=== PATIENT | female | born 1955 | race Caucasian/White ===

== ENCOUNTER → 2018-07-17 10:35 | Outpatient (CLI) | payer OTHER, SELFPAY ==
--- NOTE | 2018-07-17 | DI.MG.S_ITS ---
BILATERAL DIGITAL SCREENING MAMMOGRAM 3D/2D WITH CAD: 07/17/2018 CLINICAL: Routine screening. Personal history of breast cancer. Family history of breast cancer. Comparison is made to exams dated: 12/29/2016 mammogram, 06/29/2016 mammogram, and 06/20/2016 mammogram - [facility]. The tissue of both breasts is heterogeneously dense. This may lower the sensitivity of mammography. Current study was also evaluated with a Computer Aided Detection (CAD) system. There are benign post operative findings in the right breast. There also are benign calcifications in both breasts. No significant masses, calcifications, or other findings are seen in either breast. There has been no significant interval change. IMPRESSION: There is no mammographic evidence of malignancy. A 1 year screening mammogram is recommended. NOTE: For mammograms, a report in lay terms will be sent to the patient. Approximately 15% of breast malignancies will not be visualized mammographically. In the management of a palpable breast mass, a negative mammogram must not discourage biopsy of a clinically suspicious lesion. Electronically Signed By: Jenny fernandez/yojana:07/18/2018 16:01:57 copy to: Shashi Cervantes letter sent: Normal Exam ACR BI-RADS Category 2: Benign Finding(s) 3342F
== END ==
PROVIDERS: PCP Internal Medicine; Visit Provider Internal Medicine
DX: Z12.31 Encounter for screening mammogram for malignant neoplasm of breast (principal); Z85.3 Personal history of malignant neoplasm of breast; Z80.3 Family history of malignant neoplasm of breast
CPT/HCPCS: 77063; 77067

== ENCOUNTER → 2018-08-09 11:57 | Outpatient (CLI) | payer OTHER, SELFPAY ==
--- NOTE | 2018-08-09 | DI.RAD.S_ITS ---
PROCEDURE: XR ANKLE LT MIN 3V INDICATIONS: PAIN IN LEFT ANKLE TECHNIQUE: 3 views of the ankle were acquired. COMPARISON: [facility], , XR FOOT 3V LEFT, 11/22/2004, 9:23. FINDINGS: Bones: No fractures or dislocations. Ankle mortise is normally aligned. No suspicious bony lesions. Moderate degenerative joint disease at the tarsal metatarsal joints on the lateral projection. There is calcaneal spurring. Soft tissues: Trace tibiotalar joint effusion. Achilles tendon appears normal. Soft tissue swelling over the lateral malleolus. IMPRESSION: 1. No fracture or dislocation. 2. Degenerative disease. 3. Calcaneal spurring. Dictated by: Shikha Joy M.D. on 08/09/2018 at 16:12 Approved by: Shikha Joy M.D. on 08/09/2018 at 16:14
== END ==
PROVIDERS: PCP Internal Medicine; Visit Provider Internal Medicine
DX: M25.572 Pain in left ankle and joints of left foot (principal); M19.072 Primary osteoarthritis, left ankle and foot; M77.32 Calcaneal spur, left foot
CPT/HCPCS: 73610

== ENCOUNTER → 2018-08-17 09:43 | Outpatient (CLI) | payer OTHER, SELFPAY ==
[2018-08-17 10:18] LABS: Alanine Aminotransferase 29 IU/L (9-52); Aspartate Aminotransferase 21 IU/L (14-36); BUN Creatinine Ratio 26.7 (6-22); Blood Urea Nitrogen 16 mg/dL (7-17); Calcium 9.8 mg/dL (8.4-10.2); Carbon Dioxide 30 mmol/L (22-32); Chloride 100 mmol/L (98-107); Estimated Glomerular Filt Rate > 60.0 mL/min (>60); Glucose 102 mg/dL (80-110); HEMOLYSIS < 15 (0-50); Potassium 4.3 mmol/L (3.4-5.1); Sodium 140 mmol/L (137-145)
[2018-08-17 10:55] LABS: Cholesterol 189 mg/dL (140-199); HDL Cholesterol 122 mg/dL (40-60); LDL Cholesterol Calculated 51 mg/dL (<100); Triglycerides 81 mg/dL (35-150)
== END ==
PROVIDERS: PCP Internal Medicine; Visit Provider Internal Medicine
DX: I10 Essential (primary) hypertension (principal); E78.5 Hyperlipidemia, unspecified
CPT/HCPCS: 36415; 80048; 80061; 84450; 84460

== ENCOUNTER 2018-10-02 08:59 | Day surgery (SDC) | payer OTHER, SELFPAY ==
--- NOTE | 2018-10-02 | PATH_ITS ---
[facility] Accession Number: [id number] . 01 Material submitted: . PART A: ASCENDING COLON POLYP X3 PART B: POLYP AT 50CM X2 PART C: POLYP AT 15CM X2 . 02 Diagnosis: A. Ascending Colon, Polyps: Fragments of tubular adenoma (three polyps removed). . B. Colon at 50 cm, Polyps: Colonic mucosa with no diagnostic abnormality, consistent with polypoid redundancies (two polyps removed). Negative for serrated lesion, dysplasia or malignancy. . C. Colon at 15 cm, Polyps: Hyperplastic polyp x2. MR/10/03/2018 . 02 Electronically signed: . Tristen Powell MD, PhD, Pathologist NPI- [id number] . 01 Gross description: . Received three formalin-filled containers, each labeled with the patient's name: . A. In a container labeled ascending colon, are multiple 0.1-0.4 cm portions of tissue, entirely submitted in cassette A. B. In a container labeled polyp at 50 cm, are three 0.1-0.3 cm portions of tissue, entirely submitted in cassette B. C. In a container labeled polyp at 15 cm, are two 0.2-0.4 cm portions of tissue, entirely submitted in cassette C. ([id number]) /FRR . 02 Pathologist provided ICD-10: D12.2 . 02 CPT . 147056, 117970, 337160 Performed at: 01 [facility] [address] [id number] MD Sherif Gillis MD Phone: [phone] Performed at: 02 [facility] [address] [place] [id number] MD Tressa Purvis MD Phone: [phone]
[2018-10-02 09:25] VITALS: BP 146/96; PULSE 88; RESP 16; TEMP 36.3; O2SAT 99; BMI 23.9
[2018-10-02] MEDS: SODIUM CHLORIDE 0.9% 1,000 ML 200 ML IV ×2 (09:29→11:00)
--- NOTE | 2018-10-02 10:26 | PM.HP.1 ---
History of Present Illness Date Patient Seen: 10/02/18 Time Patient Seen: 10:19 Chief complaint: colonoscopy 10389 Narrative: Patient is a woman here for a colonoscopy. She had 14 polyps removed year ago and recommended she come back to re-examine her colon this year. Grandmother had colon cancer Patient History household members: family Status post right breast lumpectomy (Chronic) Surgical History Status post right breast lumpectomy (Chronic) Family & Social History Social History: household members family Meds Home Medications Medication Instructions Recorded Confirmed Type CA PANTOTHENATE/FOLIC ACID/VIT 1 tab PO QDAY #0 04/01/13 History (MULTIVITAMIN) CALCIUM CARBONATE (#CALCIUM) 500 mg PO Q DAY #0 04/01/13 History CHOLECALCIFEROL (VITAMIN D3) Q DAY #0 04/01/13 History (VITAMIN D) [Vitamin B12 ] QMONTH #0 04/01/13 History atenolol 25 mg PO BID #0 04/01/13 History Allergies Allergy/AdvReac Type Severity Reaction Status Date / Time No Known Drug Allergies Allergy Verified 10/02/18 08:31 Review of Systems Review of Systems All systems reviewed & are unremarkable except as noted in HPI and below Exam Vital Signs (past 8 hours): - 10/02/18 09:25 Temperature 97.3 F L Pulse Rate 88 Respiratory Rate 16 Blood Pressure 146/96 H Pulse Oximetry 99 Oxygen Delivery Method Room Air Narrative Exam Narrative: Thin cooperative woman in no apparent distress. Lungs are clear. Heart regular rate and rhythm without murmur gallop. Abdomen is scaphoid soft nontender without mass or hernia. Patient is alert and oriented. Assessment & Plan Plan: Assessment/Plan Narrative: Will proceed to colonoscopy. I have discussed the procedure and the rationale with the patient including risks of bleeding, perforation which would necessitate a major operation, failure to find remove all lesions and the potential to tattoo. They appeared to understand and wished to proceed.
--- NOTE | 2018-10-02 10:29 | PM.PREOP ---
Pre-operative Note Interval Note History & Physical reviewed/Exam performed by Physician: Yes Changes to H&P: No ASA Class (for procedural sedation): II
[2018-10-02] MEDS: MIDAZOLAM 5 MG/5 ML VIAL IV (10:32)
[2018-10-02] MEDS: fentaNYL 250 MCG/5 ML INJ IV (10:33)
[2018-10-02] MEDS: ONDANSETRON 4 MG/2 ML INJ IV (10:33)
[2018-10-02] MEDS: SCOPOLAMINE 1 PATCH TOP (10:37)
[2018-10-02 11:03] VITALS: BP 129/84; PULSE 63; RESP 12; TEMP 36.7; O2SAT 96
--- NOTE | 2018-10-02 11:05 | P.OP.ENDO_ITS ---
Operative Date/Time/Diagnoses Date of procedure: 10/02/18 Time of procedure: 11:01 Pre-op diagnosis: History of numerous polyps. Last exam was 1 year ago. Post-op diagnosis: same (Seven polyps all diminutive 4 removed. Sigmoid diverticulosis. Internal hemorrhoids.) Procedure & Clinicians Study performed: EGD with cold biopsy Same procedure as scheduled: Yes Indications: History of 14 polyps removed a year ago. Due to the numerous nature and size of the polyp she is brought back for re-evaluation. Surgeon: Adonis Mcdaniel Procedure Notes SCOAP/Timeout: Performed Procedure in detail: The patient was placed in the left lateral decubitus position and underwent IV sedation directed by the surgeon consisting of fentanyl and Versed. Digital exam was unremarkable. The scope was inserted and advanced through the rectum into the sigmoid, descending, transverse, and ascending colon. The patient was noted to have sigmoid diverticulosis.. The cecum was reached identified by the ileocecal valve and the appendiceal opening. The scope was gradually brought out. Polyps were found at the ascending colon(3), 50 cm from the anal verge(2) and 15 cm from the anal verge(2 ). All were quite small. All were removed with cold biopsy forceps. The scope ultimately was attempted to be retroflexed in the rectum. I was unable to do so. The scope was slowly brought out through the anal verge. The patient was noted to have internal hemorrhoids without ulceration. The scope was removed and the patient tolerated the procedure well. The prep was very good. Scope withdrawal time: 16 min Findings: diverticulosis (Sigmoid), internal hemorrhoids and polyp (Seven small polyps) Specimen(s): other (Polyps) Complications: none Recommendations: Colonscopy in 3 years Follow up: as needed Disposition: PACU
[2018-10-02 11:09] VITALS: BP 117/77; PULSE 60; RESP 10; O2SAT 96
[2018-10-02 11:14] VITALS: BP 112/77; PULSE 64; RESP 13; O2SAT 97
[2018-10-02 11:19] VITALS: BP 118/81; PULSE 82; RESP 15; TEMP 36.5; O2SAT 99
[2018-10-02 11:29] VITALS: BP 124/79; PULSE 69; RESP 15; TEMP 36.3; O2SAT 98
== END 2018-10-02 11:55 | disposition home or self-care (01) ==
LOC: ENDO 09:01
PROVIDERS: PCP Internal Medicine; Visit Provider Specialist
PROC: 0DJD8ZZ Inspection of Lower Intestinal Tract, Via Natural or Artificial Opening Endoscopic (ICD-10-PCS; CPT 45378; principal; 2018-10-02 09:45)
DX: Z86.010 Personal history of colon polyps (principal); K57.30 Diverticulosis of large intestine without perforation or abscess without bleeding; K64.8 Other hemorrhoids; D12.2 Benign neoplasm of ascending colon
CPT/HCPCS: 45380; J2250; J2405; J3010

== ENCOUNTER → 2019-07-19 11:34 | Outpatient (CLI) | payer OTHER, SELFPAY ==
--- NOTE | 2019-07-19 | DI.MG.S_ITS ---
BILATERAL DIGITAL SCREENING MAMMOGRAM 3D/2D WITH CAD POST LUMPECTOMY: 07/19/2019 CLINICAL: Routine screening. Personal history of right breast cancer. Family history of breast cancer. Comparison is made to exams dated: 07/17/2018 mammogram, 12/29/2016 mammogram, 06/20/2016 mammogram, and 04/01/2015 mammogram - [facility]. The tissue of both breasts is heterogeneously dense. This may lower the sensitivity of mammography. Current study was also evaluated with a Computer Aided Detection (CAD) system. There are benign calcifications in both breasts. There also are benign post operative findings in the right breast. No significant masses, calcifications, or other findings are seen in either breast. There has been no significant interval change. IMPRESSION: There is no mammographic evidence of malignancy. A 1 year screening mammogram is recommended. This exam was interpreted at Station ID: [id number]. NOTE: For mammograms, a report in lay terms will be sent to the patient. Approximately 15% of breast malignancies will not be visualized mammographically. In the management of a palpable breast mass, a negative mammogram must not discourage biopsy of a clinically suspicious lesion. Electronically Signed By: Lloyd cheatham/yojana:07/19/2019 13:03:27 letter sent: Normal Exam ACR BI-RADS Category 2: Benign Finding(s) 3342F
== END ==
PROVIDERS: PCP Internal Medicine; Visit Provider Internal Medicine
DX: Z12.31 Encounter for screening mammogram for malignant neoplasm of breast (principal); Z85.3 Personal history of malignant neoplasm of breast; Z80.3 Family history of malignant neoplasm of breast
CPT/HCPCS: 77063; 77067

== ENCOUNTER → 2019-11-29 09:34 | Outpatient (CLI) | payer MEDICARE, SELFPAY ==
[2019-11-29 10:18] LABS: Cholesterol 158 mg/dL (140-199); HDL Cholesterol 40 mg/dL (40-60); LDL Cholesterol Calculated 99 mg/dL (<100); Triglycerides 95 mg/dL (35-150)
[2019-12-03 10:50] LABS: Alanine Aminotransferase 17 IU/L (<35); Aspartate Aminotransferase 26 IU/L (14-36)
== END ==
PROVIDERS: PCP Internal Medicine; Referring Provider Internal Medicine; Visit Provider Internal Medicine
DX: E78.5 Hyperlipidemia, unspecified (principal)
CPT/HCPCS: 36415; 80061; 84450; 84460

== ENCOUNTER → 2020-02-26 10:13 | Outpatient (CLI) | payer MEDICARE, SELFPAY ==
[2020-02-26 10:55] LABS: Bacteria Urine None Seen; RBC Urine None Seen (0-5/HPF); WBC Urine None Seen (0-5/HPF)
[2020-02-26 11:39] LABS: Appearance Urine UA CLEAR; Bilirubin Urine UA NEGATIVE (NEGATIVE); Color Urine UA YELLOW; Glucose Urine UA NEGATIVE (Negative); Ketones Urine UA NEGATIVE (NEGATIVE); Leukocyte Esterase Urine UA NEGATIVE (NEGATIVE); Nitrite Urine UA NEGATIVE (Negative); Occult Blood Urine UA NEGATIVE (Negative); Protein Urine UA NEGATIVE (Negative); Urobilinogen Urine UA 0.2 E.U./dL (0.2)
[2020-02-26 11:39] LABS: Add Manual Diff / Slide Review NO; Basophils Absolute Auto 100 /uL (0-100); Eosinophils Absolute Auto 300 /uL (0-450); Eosinophils Percent Auto 3.9 % (2-4); Hematocrit 37.8 % (36-46); Hemoglobin 12.9 g/dL (12.0-16.0); Lymphocytes Absolute Auto 2200 /uL (1100-4500); Lymphocytes Percent Auto 28.7 % (25-40); Mean Corpuscular HGB Conc 34.1 % (30-36); Mean Corpuscular Hemoglobin 29.7 PG (26-34); Mean Corpuscular Volume 87.2 fL (80-100); Monocytes Absolute Auto 500 /uL (0-900); Monocytes Percent Auto 6.6 % (3-14); Neutrophils Absolute Auto 4500 /uL (1500-7000); Neutrophils Percent Auto 59.8 % (50-75); Platelet Count 203 X10^3/uL (150-400); Red Blood Cell Count 4.33 X10^6/uL (4.0-5.2); Red Cell Distribution Width 12.6 % (11.6-14.8); White Blood Cell Count 7.5 X10^3/uL (4.5-11.0)
[2020-02-26 12:08] LABS: pH Urine UA 6.5 (4.5-8.0)
[2020-02-26 12:14] LABS: Blood Urea Nitrogen 15 mg/dL (7-17); Calcium 9.4 mg/dL (8.4-10.2); Carbon Dioxide 33 mmol/L (22-32); Chloride 103 mmol/L (98-107); Estimated Glomerular Filt Rate > 60.0 mL/min (>60); Glucose 90 mg/dL (80-110); HEMOLYSIS < 15 (0-50); Sodium 138 mmol/L (137-145)
[2020-02-26 12:26] LABS: Culture Indicated Urine Cult Not Indicated
[2020-02-26 12:41] LABS: TSH w/ Reflex to FT4 2.62 uIU/mL (0.47-4.68)
[2020-02-26 13:00] LABS: Vitamin B12 514 pg/mL (239-931)
== END ==
PROVIDERS: PCP Internal Medicine; Referring Provider Internal Medicine; Visit Provider Internal Medicine
DX: R53.82 Chronic fatigue, unspecified (principal); R10.9 Unspecified abdominal pain; E53.8 Deficiency of other specified B group vitamins; I10 Essential (primary) hypertension
CPT/HCPCS: 36415; 80048; 81001; 82607; 84443; 85025

== ENCOUNTER → 2020-03-05 11:53 | Outpatient (CLI) | payer MEDICARE, SELFPAY ==
--- NOTE | 2020-03-05 12:53 | DI.CT.S_ITS ---
PROCEDURE: CT ABDOMEN PELVIS W CON INDICATIONS: Unspecified abdominal pain TECHNIQUE: After the administration of oral and intravenous contrast, 5 mm thick sections acquired from the diaphragms to the symphysis. 5 mm thick coronal and sagittal reformats were performed. For radiation dose reduction, the following was used: automated exposure control, adjustment of mA and/or kV according to patient size. COMPARISON: [facility], , CT ABDOMEN/PELVIS W/WO CONTRAST, 07/07/2003, 12:12. FINDINGS: Image quality: Excellent. ABDOMEN: Lung bases: There are right middle lobe and lingular scars. Heart size is normal. Solid organs: Liver is normal in size and enhancement. Tiny indeterminate hypodensities in the left hepatic lobe are most likely hepatic cysts. Gallbladder may contain gallstones. Biliary system is non-dilated. Pancreas enhances normally. Spleen is normal in size and enhancement. No adrenal nodules. Kidneys are normal in size and enhancement, without hydronephrosis. There is a 6 mm nonobstructing stone in right kidney. Peritoneum and bowel: Stomach, small bowel, and colon loops are normal in caliber and wall thickness. There are numerous colonic diverticula. No free fluid or air. Nodes and vessels: No retroperitoneal or mesenteric adenopathy. Aorta and inferior vena cava are normal in caliber. Miscellaneous: There is a small fat containing umbilical hernia. PELVIS: Genitourinary: Bladder wall thickness is normal. Myomatous uterus with multiple uterine fibroids. No adnexal mass. No free fluid in the cul-de-sac. Miscellaneous: No inguinal hernias or adenopathy. Bones: No suspicious bony lesions. No vertebral body compression fractures. IMPRESSION: 1. No acute abnormalities in abdomen or pelvis. The cause for abdominal pain is not identified. 2. A 6 mm nonobstructive right renal stone. 3. Suspect cholelithiasis. Recommend ultrasound for further evaluation. 4. Myomatous uterus. 5. Small fat containing umbilical hernia. Dictated by: Shikha Joy M.D. on 03/05/2020 at 14:43 Approved by: Shikha Joy M.D. on 03/05/2020 at 18:01
== END ==
PROVIDERS: PCP Internal Medicine; Referring Provider Internal Medicine; Visit Provider Internal Medicine
DX: R10.9 Unspecified abdominal pain (principal); K57.90 Diverticulosis of intestine, part unspecified, without perforation or abscess without bleeding; K42.9 Umbilical hernia without obstruction or gangrene; N20.0 Calculus of kidney; D25.9 Leiomyoma of uterus, unspecified
CPT/HCPCS: 74177; Q9967

== ENCOUNTER → 2020-03-27 12:43 | Outpatient (CLI) | payer MEDICARE, SELFPAY ==
--- NOTE | 2020-03-27 | DI.US.S_ITS ---
PROCEDURE: US ABDOMEN LIMITED INDICATIONS: GALLSTONES TECHNIQUE: Real-time focused scanning was performed of the abdomen, with image documentation. COMPARISON: [facility], CT, CT ABDOMEN PELVIS W CON, 03/05/2020, 12:41. FINDINGS: Normal appearance of the liver 13 mm right hepatic lobe cyst.. Adenomyomatosis of the anterior gallbladder wall. No definitive mobile stones visualized. No gallbladder wall thickening. Extrahepatic bile duct is upper limits of normal in size measuring 7.5 mm. Normal pancreas. IMPRESSION: Gallbladder wall adenomyomatosis and hepatic cyst. Dictated by: Deonte Armstrong [facility] Interpreted: Cayden Hackett MD on 03/30/2020 at 13:00 Approved by: Cayden Hackett M.D. on 03/30/2020 at 13:51
== END ==
PROVIDERS: PCP Internal Medicine; Referring Provider Internal Medicine; Visit Provider Internal Medicine
DX: K80.20 Calculus of gallbladder without cholecystitis without obstruction (principal); K82.8 Other specified diseases of gallbladder; K76.89 Other specified diseases of liver
CPT/HCPCS: 76705

== ENCOUNTER → 2020-07-21 11:14 | Outpatient (CLI) | payer MEDICARE, SELFPAY ==
--- NOTE | 2020-07-21 | DI.MG.S_ITS ---
BILATERAL DIGITAL SCREENING MAMMOGRAM 3D/2D WITH CAD: 07/21/2020 CLINICAL: Routine screening. Breast cancer. Family history of breast cancer. Comparison is made to exams dated: 07/19/2019 mammogram, 07/17/2018 mammogram, and 12/29/2016 mammogram - [facility]. The tissue of both breasts is heterogeneously dense. This may lower the sensitivity of mammography. Current study was also evaluated with a Computer Aided Detection (CAD) system. There are benign calcifications in both breasts. There also are benign post operative findings in the right breast. No significant masses, calcifications, or other findings are seen in either breast. There has been no significant interval change. IMPRESSION: BENIGN There is no mammographic evidence of malignancy. A 1 year screening mammogram is recommended. This exam was interpreted at Station ID: [id number]. NOTE: For mammograms, a report in lay terms will be sent to the patient. Approximately 15% of breast malignancies will not be visualized mammographically. In the management of a palpable breast mass, a negative mammogram must not discourage biopsy of a clinically suspicious lesion. Electronically Signed By: Tricia green/yojana:07/21/2020 13:27:24 letter sent: Normal Exam ACR BI-RADS Category 2: Benign Finding(s) 3342F
== END ==
PROVIDERS: PCP Internal Medicine; Referring Provider Internal Medicine; Visit Provider Internal Medicine
DX: Z12.31 Encounter for screening mammogram for malignant neoplasm of breast (principal)
CPT/HCPCS: 77063; 77067

== ENCOUNTER → 2020-08-25 11:56 | Outpatient (CLI) | payer MEDICARE, SELFPAY ==
--- NOTE | 2020-08-25 | DI.US.S_ITS ---
PROCEDURE: US RENAL COMPLETE INDICATIONS: UNSPECIFIED ABD. PAIN TECHNIQUE: Real-time scanning was performed of the kidneys and bladder, with image documentation. COMPARISON: [facility], CT, CT ABDOMEN PELVIS W CON, 03/05/2020, 12:41. FINDINGS: Kidneys: Kidneys are normal in size. Right kidney measures 11.4 cm long; left kidney measures 11.9 cm long. Right renal cortical thickness is 1.6 cm; left renal cortical thickness is 1.8 cm. Renal cortical echotexture is normal. No hydronephrosis or nephrolithiasis. No suspicious solid mass lesions. Note is made of a 5 mm calculus at the right kidney also seen by prior CT scanning at the mid kidney level, nonobstructive Bladder: Pre-void bladder volume is 320 mL. Post-void residual is 9 mL. Pre-void images demonstrate no intraluminal masses or stones. On pre-void images, bilat ureteral jets are noted with color Doppler interrogation. (Of note, ureteral jets may not be detectable in up to 25% of cases due to insufficient differences in specific gravity between ureteral and bladder urine). Miscellaneous: No free pelvic fluid. IMPRESSION: Small nonobstructive calculus at the right kidney likely is the same calculus seen by CT scanning 03/05/20. It has not enlarged. Normal bladder function. Dictated by: Wai Dominique M.D. on 08/25/2020 at 14:26 Approved by: Wai Dominique M.D. on 08/25/2020 at 14:37
== END ==
PROVIDERS: PCP Internal Medicine; Referring Provider Physician Assistant; Visit Provider Physician Assistant
DX: N20.0 Calculus of kidney (principal)
CPT/HCPCS: 76770

== ENCOUNTER → 2020-11-04 14:59 | Outpatient (ROUT) | payer OTHER, SELFPAY ==
[2020-11-04 15:10] LABS: Add Manual Diff / Slide Review NO; Basophils Absolute Auto 100 /uL (0-100); Basophils Percent Auto 0.8 % (0-2); Eosinophils Absolute Auto 300 /uL (0-450); Lymphocytes Absolute Auto 2100 /uL (1100-4500); Lymphocytes Percent Auto 29.1 % (25-40); Mean Corpuscular HGB Conc 33.4 % (30-36); Mean Corpuscular Hemoglobin 30.4 PG (26-34); Mean Corpuscular Volume 90.9 fL (80-100); Monocytes Absolute Auto 500 /uL (0-900); Monocytes Percent Auto 7.3 % (3-14); Neutrophils Absolute Auto 4200 /uL (1500-7000); Neutrophils Percent Auto 58.8 % (50-75); Platelet Count 202 X10^3/uL (150-400); Red Blood Cell Count 4.62 X10^6/uL (4.0-5.2); Red Cell Distribution Width 13.1 % (11.6-14.8); White Blood Cell Count 7.1 X10^3/uL (4.5-11.0)
[2020-11-04 15:28] LABS: Alanine Aminotransferase 18 IU/L (<35); Albumin 4.5 g/dL (3.5-5.0); Albumin Globulin Ratio 1.7 (1.0-2.8); Alkaline Phosphatase 74 U/L (38-126); Aspartate Aminotransferase 26 IU/L (14-36); BUN Creatinine Ratio 27.3 (6-22); Bilirubin Total 0.6 mg/dL (0.2-1.3); Blood Urea Nitrogen 18 mg/dL (7-17); Calcium 9.9 mg/dL (8.4-10.2); Carbon Dioxide 29 mmol/L (22-32); Chloride 100 mmol/L (98-107); Estimated Glomerular Filt Rate > 60.0 mL/min (>60); Globulin 2.6 g/dL (1.7-4.1); Glucose 91 mg/dL (80-110); HEMOLYSIS < 15 (0-50); Potassium 4.3 mmol/L (3.4-5.1); Sodium 136 mmol/L (137-145); Total Protein 7.1 g/dL (6.3-8.2)
== END ==
PROVIDERS: PCP Internal Medicine; Visit Provider Internal Medicine
DX: R07.9 Chest pain, unspecified (principal)
CPT/HCPCS: 80053; 85025

== ENCOUNTER → 2020-11-11 10:28 | Outpatient (CLI) | payer OTHER, SELFPAY ==
--- NOTE | 2020-11-11 10:40 | DI.CT.S_ITS ---
PROCEDURE: CT CHEST W CON INDICATIONS: Chest pain, unspecified TECHNIQUE: After the administration of intravenous contrast, 5 mm thick sections acquired from the pulmonary apices to the posterior costophrenic angles. 1 mm axial lung, 5 mm thick coronal and sagittal reformats and 7 mm axial MIP were acquired. For radiation dose reduction, the following was used: automated exposure control, adjustment of mA and/or kV according to patient size. COMPARISON: None. FINDINGS: Image quality: Excellent. Lungs and pleura: There is a 1.1 cm round solid nodule in the subpleural posterior medial right lower lobe (2/177). A pleural-based 6 mm nodule is present in the posterior left lower lobe superior segment (2/126). There is a ground-glass irregular nodule in the lateral right lower lobe measuring about 9 mm (2/152). Atelectatic changes are seen in the lingula and right middle lobe. No pleural effusions or pneumothorax. Central and peripheral airways are patent and normal in caliber. Mediastinum: Heart size is normal. No pericardial effusion. No mediastinal or hilar adenopathy by size criteria. There is narrowing or stenosis of the brachiocephalic vein at the SVC junction with preferential opacification of the SVC through the azygos vein. Thoracic aorta and central pulmonary arteries are normal in size. Esophagus is normal in caliber. No hiatal hernia. Bones and chest wall: Surgical clips in the right breast and right axilla. No suspicious bony lesions. No vertebral body compression fractures. No axillary or supraclavicular adenopathy by size criteria. Thyroid gland is normal . Abdomen: Visualized upper abdominal solid organs appear normal. Upper abdominal bowel loops are normal in caliber. IMPRESSION: 1. 11 mm round solid nodule in the posteromedial right lower lobe. Given patient history of primary neoplasm, this nodule is mildly suspicious. PET-CT is recommended. 2. 2 other nodules, one ground-glass and one pleural-based. Continued follow-up of these nodules CT in six months is recommended. 3. 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 4. No osseous abnormalities. Dictated by: Tricia Park M.D. on 11/11/2020 at 14:46 Approved by: Tricia Park M.D. on 11/11/2020 at 15:26
== END ==
PROVIDERS: PCP Internal Medicine; Referring Provider Internal Medicine; Visit Provider Internal Medicine
DX: R07.9 Chest pain, unspecified (principal); R91.8 Other nonspecific abnormal finding of lung field
CPT/HCPCS: 71260; Q9967

== ENCOUNTER → 2021-01-21 09:11 | Outpatient (CLI) | payer OTHER, SELFPAY ==
[2021-01-21 10:50] LABS: Cholesterol 277 mg/dL (140-199); HDL Cholesterol 100 mg/dL (40-60); LDL Cholesterol Calculated 146 mg/dL (<100); Triglycerides 156 mg/dL (35-150)
== END ==
PROVIDERS: PCP Internal Medicine; Referring Provider Internal Medicine; Visit Provider Internal Medicine
DX: E78.5 Hyperlipidemia, unspecified (principal)
CPT/HCPCS: 36415; 80061

== ENCOUNTER → 2021-06-28 09:31 | Outpatient (CLI) | payer OTHER, SELFPAY | PROVIDERS: PCP Internal Medicine; Referring Provider Internal Medicine; Visit Provider Internal Medicine | DX: Z78.0 Asymptomatic menopausal state (principal); M85.851 Other specified disorders of bone density and structure, right thigh; Z85.3 Personal history of malignant neoplasm of breast; Z72.0 Tobacco use | CPT/HCPCS: 77080 ==

== ENCOUNTER → 2021-07-22 11:54 | Outpatient (CLI) | payer OTHER, SELFPAY ==
--- NOTE | 2021-07-22 | DI.MG.S_ITS ---
BILATERAL DIGITAL SCREENING MAMMOGRAM 3D/2D WITH CAD POST LUMPECTOMY: 07/22/2021 CLINICAL: Routine screening. Personal history of right breast cancer. Comparison is made to exams dated: 07/21/2020 mammogram, 07/19/2019 mammogram, 07/17/2018 mammogram, and 06/20/2016 mammogram - [facility]. The tissue of both breasts is heterogeneously dense. This may lower the sensitivity of mammography. Current study was also evaluated with a Computer Aided Detection (CAD) system. There are benign calcifications in both breasts. There also are benign post operative findings in the right breast. No significant masses, calcifications, or other findings are seen in either breast. There has been no significant interval change. IMPRESSION: BENIGN There is no mammographic evidence of malignancy. A 1 year screening mammogram is recommended. This exam was interpreted at Station ID: [id number]. NOTE: For mammograms, a report in lay terms will be sent to the patient. Approximately 15% of breast malignancies will not be visualized mammographically. In the management of a palpable breast mass, a negative mammogram must not discourage biopsy of a clinically suspicious lesion. Electronically Signed By: Lloyd cheatham/yojana:07/22/2021 12:55:49 letter sent: Normal Exam ACR BI-RADS Category 2: Benign Finding(s) 3342F
== END ==
PROVIDERS: PCP Internal Medicine; Referring Provider Internal Medicine; Visit Provider Internal Medicine
DX: Z12.31 Encounter for screening mammogram for malignant neoplasm of breast (principal); Z85.3 Personal history of malignant neoplasm of breast
CPT/HCPCS: 77063; 77067

== ENCOUNTER → 2022-04-18 13:49 | Outpatient (CLI) | payer OTHER, SELFPAY ==
[2022-04-18 14:36] LABS: COVID19 -Nasal RAPID Negative (Negative)
== END ==
PROVIDERS: Visit Provider Student in an Organized Health Care Education/Training Program
DX: Z20.822 Contact with and (suspected) exposure to COVID-19 (principal)
CPT/HCPCS: 87635

== ENCOUNTER → 2022-08-18 10:40 | Outpatient (CLI) | payer OTHER, SELFPAY ==
--- NOTE | 2022-08-18 | DI.MG.S_ITS ---
BILATERAL DIGITAL SCREENING MAMMOGRAM 3D/2D WITH CAD: 08/18/2022 CLINICAL: Routine screening. Personal history of right breast cancer. Family history of breast cancer. Comparison is made to exams dated: 07/22/2021 mammogram, 07/21/2020 mammogram, and 07/19/2019 mammogram - [facility]. Both breasts are heterogeneously dense, which may obscure small masses (category c / 51-75% glandular tissue). Current study was also evaluated with a Computer Aided Detection (CAD) system. There are benign calcifications in both breasts. There also are benign post operative findings in the right breast. No significant masses, calcifications, or other findings are seen in either breast. There has been no significant interval change. IMPRESSION: BENIGN There is no mammographic evidence of malignancy. A 1 year screening mammogram is recommended. This exam was interpreted at Station ID: [id number]. NOTE: For mammograms, a report in lay terms will be sent to the patient. Approximately 15% of breast malignancies will not be visualized mammographically. In the management of a palpable breast mass, a negative mammogram must not discourage biopsy of a clinically suspicious lesion. Electronically Signed By: Sravan oliva/yojana:08/18/2022 12:02:05 letter sent: Normal Exam ACR BI-RADS Category 2: Benign Finding(s) 3342F
== END ==
PROVIDERS: PCP Internal Medicine; Referring Provider Internal Medicine; Visit Provider Internal Medicine
DX: Z12.31 Encounter for screening mammogram for malignant neoplasm of breast (principal); Z85.3 Personal history of malignant neoplasm of breast; Z80.3 Family history of malignant neoplasm of breast
CPT/HCPCS: 77063; 77067

== ENCOUNTER → 2023-01-03 10:50 | Outpatient (CLI) | payer OTHER, SELFPAY ==
--- NOTE | 2023-01-03 10:52 | DI.RAD.S_ITS ---
PROCEDURE: XR KNEE RT 3V INDICATIONS: bilateral knee pain, primary osteoarthritis TECHNIQUE: 3 views of the knee were acquired. COMPARISON: [facility], , KNEE 3V LEFT, 11/01/2015, 12:02. FINDINGS: Bones: No fractures or dislocations. [id number] tricompartmental osteoarthritis is seen in right knee most notably in medial femoral tibial compartment with significant joint space narrowing, subchondral sclerosis and marginal osteophyte formation. No patellar subluxation. No suspicious bony lesions. Soft tissues: No joint effusion. No suspicious soft tissue calcifications. IMPRESSION: [id number] tricompartmental osteoarthritis most notably in medial femoral tibial compartment. No fracture or dislocation. No significant joint effusion. Dictated by: Cayden Hackett M.D. on 01/03/2023 at 12:09 Approved by: Cayden Hackett M.D. on 01/03/2023 at 12:10
--- NOTE | 2023-01-03 10:52 | DI.RAD.S_ITS ---
PROCEDURE: XR KNEE LT 3V INDICATIONS: bilateral knee pain, primary osteoarthritis TECHNIQUE: 3 views of the knee were acquired. COMPARISON: [facility], , KNEE 3V LEFT, 11/01/2015, 12:02. FINDINGS: Bones: No fractures or dislocations. Yplq-qw-sxjcfqqt tricompartmental osteoarthritis is seen with joint space narrowing, subchondral sclerosis and marginal osteophyte formation most notably in medial femoral tibial compartment. No patellar subluxation. No suspicious bony lesions. Soft tissues: No joint effusion. No suspicious soft tissue calcifications. IMPRESSION: Rkph-[id number] tricompartmental osteoarthritis in left knee most notably in medial femoral tibial compartment. No fracture or dislocation. No significant joint effusion. Dictated by: Cayden Hackett M.D. on 01/03/2023 at 12:04 Approved by: Cayden Hackett M.D. on 01/03/2023 at 12:09
== END ==
PROVIDERS: PCP Internal Medicine; Referring Provider Internal Medicine; Visit Provider Internal Medicine
DX: M17.0 Bilateral primary osteoarthritis of knee (principal)
CPT/HCPCS: 73562

== ENCOUNTER → 2023-01-12 09:50 | Outpatient (CLI) | payer OTHER, SELFPAY ==
--- NOTE | 2023-01-12 09:54 | DI.CT.S_ITS ---
PROCEDURE: CT IVP A/P W/WO INDICATIONS: RIGHT FLANK PAIN TECHNIQUE: Optional 5 mm thick noncontrast images acquired from the diaphragm to the symphysis pubis. After the administration of intravenous contrast, 5 mm thick images acquired from the diaphragm to the symphysis pubis after a 10-minute delay. 2 mm thick coronal and sagittal reformats were then performed of the kidneys and ureters. For radiation dose reduction, the following was used: automated exposure control, adjustment of mA and/or kV according to patient size. COMPARISON: [facility], CT, CT ABDOMEN PELVIS W CON, 03/05/2020, 12:41. FINDINGS: Image quality: Excellent. Lung bases: Lung bases are clear. Heart size is normal. Urinary system: Both kidneys are normal in size without hydronephrosis. Symmetric enhancement. There is a nonobstructing 6 mm right renal stone measuring approximately 1300 Hounsfield units. Right ureter is normal in course and caliber. No left-sided renal stones. No left perinephric stranding. Left ureter is normal in course and caliber. Renal calyces appear normal in morphology when filled with contrast. Opacified portions of both ureters demonstrate normal caliber. Bladder wall thickness is normal. No calcified bladder stones. No perivesicular stranding. Other solid organs: Liver is normal in size and enhancement. Redemonstration of 1.3 cm oval hypodensity in the inferior tip of the right hepatic lobe. This likely represents a cyst or hemangioma. Gallbladder is unremarkable.. Biliary system is non dilated. Pancreas enhances normally. Spleen is normal in size and enhancement. No adrenal nodules. Peritoneum and bowel: Multiple scattered colonic diverticula without evidence for acute inflammatory changes. However, there is nonspecific peritoneal fat stranding involving the proximal to mid ascending colon without definite wall thickening. Inflammatory changes does not appear to center around a diverticula. Normal appendix. No free fluid or air. Nodes and vessels: No retroperitoneal or mesenteric adenopathy by size criteria. Scattered atherosclerotic calcifications of the abdominal aorta and iliac vessels without aneurysmal dilatation. The inferior vena cava appears patent. Abdominal wall: There is a fat-containing umbilical hernia without acute inflammation. Pelvis: No pathologic free pelvic fluid. No inguinal hernias. No pelvic adenopathy. Redemonstration of numerous calcified uterine fibroids. Bones: No suspicious bony lesions. No acute vertebral body compression fractures. No acute vertebral body compression fractures. Multilevel spondylitic changes throughout the imaged spine. No suspicious osseous lesions. IMPRESSION: 1. Nonobstructing 6 mm right renal stone as before. No hydronephrosis or perinephric stranding. No evidence for obstructive uropathy. 2. Nonspecific peritoneal fat stranding of the right mid and lower abdomen along the proximal to mid ascending colon. No definite wall thickening or inflammatory changes surrounding scattered diverticula. Findings may represent colitis either infectious or inflammatory in etiology. Mild diverticulitis may have a similar appearance. The appendix appears normal. 3. Scattered colonic diverticulosis. No definite acute diverticulitis although there are some inflammatory changes adjacent to the proximal/mid ascending colon. 4. Stable appearance of 1.3 cm oval hypodensity over the inferior tip of the right hepatic lobe. 5. Other chronic findings as above. Dictated by: Lloyd Haney M.D. on 01/12/2023 at 15:08 Approved by: Lloyd Haney M.D. on 01/12/2023 at 15:23
[2023-01-12 10:18] LABS: Estimated Glomerular Filt Rate > 60 mL/min (>60)
== END ==
PROVIDERS: Specialist; PCP Internal Medicine; Referring Provider Internal Medicine; Visit Provider Internal Medicine
DX: N20.0 Calculus of kidney (principal); K57.90 Diverticulosis of intestine, part unspecified, without perforation or abscess without bleeding; R10.9 Unspecified abdominal pain; Z98.890 Other specified postprocedural states
CPT/HCPCS: 36415; 74178; 82565; Q9967

== ENCOUNTER → 2023-08-02 09:21 | Outpatient (CLI) | payer MEDICARE, SELFPAY ==
--- NOTE | 2023-08-02 | DI.MG.S_ITS ---
BILATERAL DIGITAL DIAGNOSTIC MAMMOGRAM 3D/2D: 08/02/2023 CLINICAL: Palpable right breast lump. personal hx of right breast cancer. Comparison is made to exams dated: 08/18/2022 mammogram, 07/22/2021 mammogram, and 07/21/2020 mammogram - [facility]. Both breasts are heterogeneously dense, which may obscure small masses (category c / 51-75% glandular tissue). No significant masses, calcifications, or other findings are seen in either breast. Benign calcifications in both breasts. Benign postoperative changes are stable in the right breast, with skin scar at site of palpable marker. IMPRESSION: INCOMPLETE: NEEDS ADDITIONAL IMAGING EVALUATION Benign postoperative changes are stable in the right breast, with skin scar at site of palpable marker. Ultrasound recommended for palpable abnormality. This exam was interpreted at Station ID: [id number]. NOTE: For mammograms, a report in lay terms will be sent to the patient. Approximately 15% of breast malignancies will not be visualized mammographically. In the management of a palpable breast mass, a negative mammogram must not discourage biopsy of a clinically suspicious lesion. Electronically Signed By: Fawad Wan M.D. lc/:08/02/2023 11:54:47 ACR BI-RADS Category 0: Incomplete 3340F
--- NOTE | 2023-08-02 | DI.US.S_ITS ---
LIMITED ULTRASOUND OF RIGHT BREAST: 08/02/2023 CLINICAL: Palpable right breast lump. Comparison is made to exams dated: 08/02/2023 mammogram, 08/18/2022 mammogram, 07/22/2021 mammogram, 07/21/2020 mammogram, 07/19/2019 mammogram, and 07/17/2018 mammogram - [facility]. Color flow, real-time, and continuous wave Doppler ultrasound of the right breast were performed. Multiple shadowing regions are seen, likely corresponding to clips and calcifications on mammogram, in which all findings were stable. IMPRESSION: BENIGN There is no sonographic evidence of malignancy. Suspected clips and calcifications are seen, corresponding to mammogram, in which all findings were stable at site of palpable marker and postoperative changes. Patient reports tender palpable abnormality today. - Close clinical followup is recommended to evaluate if this area is actually new or changing. If so, reimaging with mammogram/ultrasound, possible MRI, and possible dermatologic evaluation are recommended. On imaging, no suspicious mass or calcifications that is different from priors. Return to annual mammogram screening schedule is also recommended. This exam was interpreted at Station ID: [id number]. Electronically Signed By: Fawad Wan M.D. lc/:08/02/2023 12:02:00 letter sent: Clinical Evaluation Ultrasound BI-RADS: 2 Benign
== END ==
PROVIDERS: PCP Internal Medicine; Referring Provider Internal Medicine; Visit Provider Internal Medicine
DX: N63.14 Unspecified lump in the right breast, lower inner quadrant (principal); N64.4 Mastodynia
CPT/HCPCS: 76642; 77066; G0279

== ENCOUNTER → 2023-08-22 13:19 | Outpatient (CLI) | payer MEDICARE, SELFPAY ==
--- NOTE | 2023-08-22 | DI.MRI.S_ITS ---
BREAST MRI OF BOTH BREASTS- POST LUMPECTOMY: 08/22/2023 CLINICAL: Personal History of malignant neoplasm of breast. TECHNIQUE: The patient was placed prone in a dedicated breast imaging coil. Precontrast axial STIR and 3D FLASH without fat saturation sequences were obtained. Both before and after bolus injection of contrast, sequential 1-minute axial 3D FLASH with fat saturation sequences for 3 time points, with subtraction images and maximum intensity projections (MIP's) generated. Delayed sagittal FLASH images with fat saturation were also obtained. 20 cc ProHance gadolinium based IV contrast. Computer-aided detection, including computer algorithm analysis of MRI image data for lesion detection and characterization, pharmacokinetic analysis, with further physician review for interpretation, was performed. COMPARISON: [facility], CT, CT CHEST W CON, 11/11/2020, 10:33. [facility], MG, MM SCREENING MAMMO BI, 07/22/2021, 12:12. [facility], , MM DIAGNOSTIC MAMMO BI, 08/02/2023, 10:02. [facility], US, US BREAST RT LIMITED, 08/02/2023, 11:10. FINDINGS: Image quality: Excellent. There is minimal background parenchymal enhancement. Right breast: The right breast is smaller than the left due to prior lumpectomy. There is inward retraction of inferior medial skin and nipple. There is nonenhancing inferomedial skin thickening. Blooming artifact and hypointensity of several surgical clips and dystrophic calcifications of fat necrosis are seen centrally in the right breast. There is minor benign linear enhancement extending from the lumpectomy bed posteriorly to the chest wall. There is enhancement the nipple and linear enhancement extending to the lumpectomy bed. This enhancement demonstrates benign kinetics and is presumably related to radiation treatment. No focal mass or malignant non masslike enhancement. Left breast: There is a probable oval lymph node measuring 0.7 x 0.7 x 0.8 cm in the 2 o'clock position 10 cm from the nipple at a posterior depth. See series 14, image 90. This correlates with microlobulated solid nodule seen on mammogram. It demonstrates mixed kinetics with some rapid enhancement and very small percentage of washout. There are no other suspicious masses or non masslike enhancement in the left breast. Incidental note is made of several mildly prominent subareolar ducts filled with proteinaceous material in the lateral left breast. Miscellaneous: No right axillary adenopathy. There is a borderline low level 1 LEFT axillary lymph node measuring 6 mm in short axis in which a fatty hilum cannot be seen, see series 14, image 109. No other bulky left axillary nodes. Centrally within the right lung at the level of the main pulmonary artery, there is a 1.6 cm enhancing centrally cavitary lung lesion not previously present. See series 11 image 100. In this location on a chest CT dated 11/11/20, there is small amount of amorphous ground-glass opacity. The previously noted smooth subpleural medial right lower lobe pulmonary nodule is redemonstrated, fairly stable size with minimal enhancement. See series 11, image 75. No visible hilar or mediastinal adenopathy. No internal mammary chain adenopathy. The visible portions of the chest wall and upper abdominal organs are normal. IMPRESSION: INCOMPLETE: NEEDS ADDITIONAL IMAGING EVALUATION 1. Postsurgical changes of lumpectomy, and expected post radiation enhancement anterior and posterior to the lumpectomy bed. No MR findings to suspect recurrence in the right breast. 2. There is a borderline probably microlobulated 0.8 cm nodule in the axillary tail of the left breast as well as of borderline low left axillary lymph node. While these are probably reactive, further characterization with ultrasound is recommended. 3. Findings suspicious for cavitary neoplasm or infection in the central right lung. Contrast-enhanced chest CT recommended. BIRADS 0-needs additional imaging. Left breast ultrasound is recommended. COMMENT: The imaging literature indicates that a negative contrast breast MRI examination has a high sensitivity and a moderate specificity for detecting and excluding invasive carcinomas to a detection threshold of 3-5 mm; nonetheless, appropriate clinical and mammographic follow-up are recommended. MRI is not sensitive for detecting DCIS (ductal carcinoma in situ) and may not detect large invasive neoplasms that show only minimal enhancement such as mucinous carcinoma. If there are suspicious calcifications or clinically worrisome palpable masses, then biopsy should still be considered. Invasive neoplasms can be hidden by co-existent and benign enhancement caused by mastitis, hormone therapy effects, radiation therapy, , and recent biopsy or surgery. False positive examinations can occur in a number of circumstances, including breasts that have recently been subject to invasive procedures and those that contain atypical ductal hyperplasia, hormonally stimulated glandular tissue, fat necrosis, or radial scars. This exam was interpreted at Station ID: [id number]. Electronically Signed By: Tricia green/:08/22/2023 17:44:35 Entry: aa - 08/23/2023 11:35:58 ACR BI-RADS Category 0: Incomplete 3340F
== END ==
PROVIDERS: PCP Internal Medicine; Referring Provider Internal Medicine; Visit Provider Internal Medicine
DX: N63.14 Unspecified lump in the right breast, lower inner quadrant (principal); Z85.3 Personal history of malignant neoplasm of breast; R91.8 Other nonspecific abnormal finding of lung field
CPT/HCPCS: 77049; A9579

== ENCOUNTER → 2023-08-25 11:46 | Outpatient (CLI) | payer MEDICARE, SELFPAY ==
[2023-08-25 12:17] LABS: Estimated Glomerular Filt Rate > 60 mL/min (>60)
== END ==
PROVIDERS: PCP Internal Medicine; Referring Provider Specialist; Visit Provider Specialist
DX: R91.1 Solitary pulmonary nodule (principal)
CPT/HCPCS: 36415; 82565

== ENCOUNTER → 2023-08-29 08:13 | Outpatient (CLI) | payer MEDICARE, SELFPAY ==
--- NOTE | 2023-08-29 | DI.US.S_ITS ---
LIMITED ULTRASOUND OF LEFT BREAST AND AXILLA: 08/29/2023 CLINICAL: Patient returns today to evaluate a focal asymmetry in the left breast. Comparison is made to exams dated: 08/22/2023 breast MRI, 08/02/2023 ultrasound, 08/02/2023 mammogram, 08/18/2022 mammogram, 07/22/2021 mammogram, and 07/21/2020 mammogram - [facility]. Color flow ultrasound of the left breast 2 o'clock, and axilla regions was performed. Clark scale images of the real-time examination were reviewed. There is a 0.7 cm x 0.7 cm x 0.5 cm normal lymph node in the left breast at 2 o'clock posterior depth 10 cm from the nipple. This normal lymph node displays fatty hilum. This correlates with breast MRI findings. Color flow imaging demonstrates that there is appropriate vascularity present. There also are two other normal lymph nodes in the left axillary tail. These lymph nodes display fatty kari. These correlate with breast MRI findings. No suspicious lymph nodes are present in the left axilla and no suspicious findings in the upper outer left breast. IMPRESSION: BENIGN There is no sonographic evidence of malignancy. The 0.7 cm x 0.7 cm x 0.5 cm normal lymph node in the left breast at 2 o'clock posterior depth corresponds to the MRI finding and is benign. The other lymph nodes in the left axillary tail are benign. Findings were conveyed to the patient at time of exam. This exam was interpreted at Station ID: [id number]. Electronically Signed By: Tricia green/:08/29/2023 09:32:44 Entry: aa - 08/29/2023 11:39:53 letter sent: Normal Exam Ultrasound BI-RADS: 2 Benign
--- NOTE | 2023-08-29 | DI.CT.S_ITS ---
PROCEDURE: CT CHEST W CON INDICATIONS: PULMONARY NODULE TECHNIQUE: After the administration of intravenous contrast, 5 mm thick sections acquired from the pulmonary apices to the posterior costophrenic angles. 1 mm axial lung, 5 mm thick coronal and sagittal reformats and 7 mm axial MIP were acquired. For radiation dose reduction, the following was used: automated exposure control, adjustment of mA and/or kV according to patient size. COMPARISON: [facility], CT, CT CHEST W CON, 11/11/2020, 10:33. FINDINGS: Image quality: Diagnostic. Lower Neck: No enlarged lymph nodes. Thyroid: No thyroid nodules which require sonographic follow up, per consensus guidelines. Axillae: No enlarged lymph nodes. Chest Wall: Surgical clips in the right axilla and right breast. Bones: No acute fracture. No aggressive appearing lytic or blastic osseous lesions. Lungs and Pleura: Compared to CT chest dated November 11, 2020, increased size of pulmonary nodule with central cavitation in the apical segment of the right lower lobe measuring 1.2 x 1.1 cm (4/161), previously 0.9 cm (2/152). Stable size of right lower lobe medial solid pulmonary nodule measuring 1.1 x 1.1 cm (4/185), previously 1.1 x 1 cm (2/177). Stable left lower lobe subpleural solid pulmonary nodule measuring 0.6 cm (4/132). No pneumothorax or pleural effusions. Heart: Heart size is normal. No pericardial effusion. Thoracic Vessels: The aorta and pulmonary arteries demonstrate normal size. Similar appearance of narrowing of the left brachiocephalic vein with collaterals. Mediastinum and Emely: No enlarged lymph nodes. Esophagus: No wall thickening. No hiatal hernia. Upper Abdomen: Visualized upper abdomen solid organs and bowel loops appear normal. IMPRESSION: 1. Compared to CT chest dated November 11, 2020, increased size of pulmonary nodule with central cavitation in the apical segment of the right lower lobe. Findings are suspicious for metastatic disease and/or infection. 2. Stable right lower lobe posteromedial solid pulmonary nodule and stable left lower lobe subpleural nodule. 3. No suspicious adenopathy. Dictated by: Destin Gambino M.D. on 08/29/2023 at 11:49 Approved by: Destin Gambino M.D. on 08/29/2023 at 12:41
== END ==
PROVIDERS: PCP Internal Medicine; Referring Provider Internal Medicine; Visit Provider Internal Medicine
DX: N63.21 Unspecified lump in the left breast, upper outer quadrant (principal); R91.8 Other nonspecific abnormal finding of lung field
CPT/HCPCS: 71260; 76642; Q9967

== ENCOUNTER → 2023-09-13 12:16 | Outpatient (CLI) | payer MEDICARE, SELFPAY ==
--- NOTE | 2023-09-13 | DI.CT.S_ITS ---
PROCEDURE: CT CHEST WO CON INDICATIONS: PULMONARY NODULE TECHNIQUE: Noncontrast 5 mm thick sections acquired from the pulmonary apices to the posterior costophrenic angles. 1 mm lung window, 5 mm thick coronal and sagittal and 7 mm axial MIP reformats were then acquired. For radiation dose reduction, the following was used: automated exposure control, adjustment of mA and/or kV according to patient size. COMPARISON: [facility], CT, CT CHEST W CON, 11/11/2020, 10:33. [facility], CT, CT CHEST W CON, 08/29/2023, 9:33. FINDINGS: Image quality: Diagnostic. Lower Neck: No enlarged lymph nodes. Thyroid: Normal CT appearance. Axillae: Surgical clips in the right axilla. No adenopathy in either axilla. Chest Wall: Surgical changes of right breast lumpectomy. No visible chest wall masses. Bones: No suspicious lesions. Lungs and Pleura: There is a thick-walled spiculated cavitary nodule laterally in the superior segment right lower lobe, 3/147, which is stable size measuring 1.4 x 0.9 cm compared to the prior exam. There is trace surrounding ground-glass opacity and adjacent cystic changes. A smoothly marginated round solid nodule in the subpleural medial right lower lobe, 3/175, measures 1.0 cm and has Hounsfield units near 0 suggesting the presence of fat. A triangular pleural-based left lower lobe nodule posteriorly measures 0.5 cm, 3/119. There are no new nodules. Trace subpleural fibrosis in the anterolateral right middle lobe. No pleural effusions. Heart: The heart is mildly enlarged and there is moderate coronary artery calcification. No pericardial effusion. Thoracic Vessels: The aorta and pulmonary arteries demonstrate normal size. Mediastinum and Emeyl: There are borderline precarinal lymph nodes. The previous enlarged right hilar node is not seen without contrast on this exam. No significant change. Esophagus: No wall thickening. No hiatal hernia. Upper Abdomen: Visualized upper abdomen solid organs and bowel loops appear normal. IMPRESSION: 1. There has been no improvement in the suspicious lateral right lower lobe pulmonary nodule compared to prior exam following antibiotic treatment. Given the change in morphology and enlargement since 11/11/20, this is suspicious for an indolent neoplasm and PET-CT, and/or tissue acquisition is recommended. 2. Stable smoothly marginated medial right lower lobe lung nodule is benign. 3. Hilar adenopathy is not detected on this exam due to lack of contrast administration. Dictated by: Tricia Park M.D. on 09/13/2023 at 17:10 Approved by: Tricia Park M.D. on 09/13/2023 at 17:23
== END ==
LOC: CT 12:17
PROVIDERS: PCP Internal Medicine; Referring Provider Internal Medicine; Visit Provider Internal Medicine
DX: R91.8 Other nonspecific abnormal finding of lung field (principal)
CPT/HCPCS: 71250

== ENCOUNTER 2023-11-20 21:36 | Emergency (ER) | payer MEDICARE, SELFPAY ==
[2023-11-20] VITALS (12 sets, daily range): BP systolic 162–216; BP diastolic 82–105; PULSE 48–107; RESP 18–25; TEMP 37.1; O2SAT 97–99; BMI 20.5
--- NOTE | 2023-11-20 21:41 | DI.CT.S_ITS ---
PROCEDURE: CT HEAD/BRAIN WO CON INDICATIONS: Slurred speech and facial droop TECHNIQUE: Noncontrast 4.5 mm thick angled axial sections acquired from the foramen magnum to the vertex, with coronal and sagittal reformats. For radiation dose reduction, the following was used: automated exposure control, adjustment of mA and/or kV according to patient size. COMPARISON: None. FINDINGS: Image quality: Diagnostic. CSF spaces: Basal cisterns are patent. No extra-axial fluid collections. Ventricles are normal in size and shape. Brain: 2.8 cm round left frontal lobe high-density mass with adjacent vasogenic edema. At the same axial level, there is a vague heterogeneous cortical mass in the right frontal lobe measuring about 1.3 cm also with adjacent vasogenic edema, more posteriorly. There is no midline shift or mahesh herniation. There is no acute intraparenchymal or intraventricular hemorrhage. Skull and face: Calvarium and visualized facial bones are intact, without suspicious lesions. Sinuses: Visualized sinuses and mastoids are clear. IMPRESSION: Probable bilateral brain masses with adjacent vasogenic edema most suggestive of metastatic disease. Discussed with Dr. Stiles in the emergency room at 22 46 hours. Dictated by: Tricia Park M.D. on 11/20/2023 at 22:45 Approved by: Tricia Park M.D. on 11/20/2023 at 22:51
--- NOTE | 2023-11-20 21:42 | DI.CT.S_ITS ---
PROCEDURE: CT ANGIO HEAD AND NECK INDICATIONS: Slurred speech and facial droop TECHNIQUE: After the administration of intravenous contrast, 1 mm thick sections acquired from the aortic arch through the [place]. 3-dimensional ivjcqbg-rbicffibn-blkxddhjox (MIP) and/or volume rendering reformats were acquired of the central intracranial vasculature and neck separately. For radiation dose reduction, the following was used: automated exposure control, adjustment of mA and/or kV according to patient size. COMPARISON: None. FINDINGS: Image quality: Diagnostic. BRAIN: CSF spaces: Ventricles are normal in size and shape. Basal cisterns are patent. No extra-axial fluid collections. Brain: Bilateral lateral frontal lobe masses, left larger than right with adjacent vasogenic edema. These are best seen on series 6, image 68. No midline shift. Skull and face: Calvarium and facial bones appear intact, without suspicious lesions. Orbits appear normal. Sinuses: Bilateral maxillary sinus and ethmoid air cell mucosal thickening.. HEAD CT ANGIOGRAPHY: Anterior circulation: Intracranial internal carotid arteries are normal in size and flow. The flow within the paired anterior cerebral arteries is normal and symmetric. The flow within the middle cerebral arteries is normal and symmetric. The anterior communicating artery is seen. No aneurysms are seen. Posterior circulation: Visualized portions of the vertebral arteries demonstrate normal caliber, and join to form a normal appearing basilar artery. Flow within the posterior cerebral arteries is normal and symmetric. No aneurysms are seen. NECK CT ANGIOGRAPHY: Carotid system: The great vessels demonstrate a conventional anatomy as they arise from the aortic arch. The origins of the common carotid arteries appear patent. The common carotid arteries demonstrate normal caliber and courses. Mild carotid bulb calcifications. The bifurcation regions are both widely patent. The internal carotid arteries demonstrate normal calibers and courses. Posterior circulation: The origins of the vertebral arteries both appear widely patent. The more superior extracranial portions of both vertebral arteries also demonstrate normal courses and calibers. They join to form a normal appearing basilar artery. Soft tissues: Visualized neck soft tissues demonstrate no suspicious abnormalities. Bones: No suspicious bony lesions. Visualized cervical spine appears normally aligned. IMPRESSION: No acute intracranial arterial occlusion or aneurysm. Bilateral lateral frontal lobe masses with phasic Palak edema but no midline shift. Mild carotid bulb calcification without significant arterial stenosis or dissection.. No posterior circulation abnormalities. Any quantitative measurements of stenosis were performed using NASCET criteria. Dictated by: Tricia Park M.D. on 11/21/2023 at 0:41 Approved by: Tricia Park M.D. on 11/21/2023 at 0:47
[2023-11-20 22:02] LABS: Add Manual Diff / Slide Review NO; Basophils Absolute Auto 100 /uL (0-100); Basophils Percent Auto 1.4 % (0-2); Eosinophils Absolute Auto 500 /uL (0-450); Eosinophils Percent Auto 7.9 % (2-4); Hematocrit 40.7 % (36-46); Hemoglobin 13.8 g/dL (12.0-16.0); Lymphocytes Absolute Auto 2500 /uL (1100-4500); Lymphocytes Percent Auto 40.5 % (25-40); Mean Corpuscular Hemoglobin 30.7 PG (26-34); Mean Corpuscular Volume 90.3 fL (80-100); Monocytes Absolute Auto 700 /uL (0-900); Monocytes Percent Auto 11.7 % (3-14); Neutrophils Absolute Auto 2400 /uL (1500-7000); Neutrophils Percent Auto 38.5 % (50-75); Platelet Count 202 X10^3/uL (150-400); Red Blood Cell Count 4.51 X10^6/uL (4.0-5.2); Red Cell Distribution Width 12.3 % (11.6-14.8); White Blood Cell Count 6.2 X10^3/uL (4.5-11.0)
[2023-11-20 22:07] LABS: INR 0.9 (0.9-1.3); Prothrombin Time 10.1 SECONDS (9.4-12.5)
[2023-11-20 22:09] LABS: PTT Partial Thromboplastin Tim 36 SECONDS (25.1-36.5)
[2023-11-20 22:12] LABS: Alanine Aminotransferase 17 IU/L (<35); Albumin 4.2 g/dL (3.5-5.0); Albumin Globulin Ratio 1.4 (1.0-2.8); Alkaline Phosphatase 68 U/L (38-126); Aspartate Aminotransferase 25 IU/L (14-36); BUN Creatinine Ratio 27.7 (6-22); Bilirubin Total 0.3 mg/dL (0.2-1.3); Blood Urea Nitrogen 18 mg/dL (7-17); Calcium 9.3 mg/dL (8.4-10.2); Carbon Dioxide 31 mmol/L (22-32); Chloride 105 mmol/L (98-107); Creatine Kinase 45 U/L (30-135); Estimated Glomerular Filt Rate > 60 mL/min (>60); Globulin 3.1 g/dL (1.7-4.1); Glucose 104 mg/dL (80-110); Lipase 129 U/L (23-300); Potassium 3.9 mmol/L (3.4-5.1); Sodium 140 mmol/L (137-145); Total Protein 7.3 g/dL (6.3-8.2)
[2023-11-20 22:24] LABS: Troponin I < 0.012 ng/mL (0.01-0.034)
[2023-11-20 22:36] LABS: Ethanol (ETOH) < 10 mg/dL; HEMOLYSIS 16 (0-50)
--- NOTE | 2023-11-20 23:17 | ED.NEUROSD ---
HPI - Neuro Symptoms/Deficit General Chief Complaint: Neuro Symptoms/Deficit Stated Complaint: poss stroke/lt face droop/speech slurred Time Seen by Provider: 11/20/23 21:40 Source: patient and family Mode of arrival: Ambulatory History of Present Illness HPI Narrative: Patient is a 60-year-old female. It distant history of breast cancer. Completed treatment in 2003. Several months ago noticed a lump on her right breast. Followed up with Oncology. Turns out that the lump was scar tissue however during the workup this they found out there was a nodule on her right lung. She is scheduled in the next month to have further evaluation of this as there is concern that this is a metastatic lesion. She has not currently undergoing treatment because there has not been a definitive diagnosis. She stated that she did have a PET scan earlier this year and there were no mention of any neurologic lesions. She states for the past 3-4 days she has had issues with speaking. These were subjective findings as her kids who were at bedside state that they did not notice that she was having any problems saying her words. She has not had any problems breathing or swallowing. No headaches, vision changes, chest pain, shortness of breath, nausea vomiting. No balance issues. No neck pain. No numbness or tingling or weakness in her upper and lower extremities. She states that rather suddenly at 1800 this afternoon she noticed significant problems speaking and right-sided facial droop. Her kids also noticed this speaking problems as well. She stated that the last time that she felt normal was Monday of last week. No history of CVA. No history of heart attack. On Anticoagulants: No Related Data Home Medications Medication Instructions Recorded Confirmed CA PANTOTHENATE/FOLIC ACID/VIT 1 tab PO QDAY ##0 04/01/13 04/18/22 (MULTIVITAMIN) CALCIUM CARBONATE (#CALCIUM) 500 mg PO Q DAY ##0 04/01/13 04/18/22 CHOLECALCIFEROL (VITAMIN D3) Q DAY ##0 04/01/13 04/18/22 (VITAMIN D) [Vitamin B12 ] QMONTH ##0 04/01/13 04/18/22 atenolol 25 mg tablet 25 mg PO BID ##0 04/01/13 04/18/22 Allergies Allergy/AdvReac Type Severity Reaction Status Date / Time No Known Drug Allergies Allergy Verified 04/18/22 13:47 Review of Systems Review of Systems ROS Unobtainable: All systems reviewed & are unremarkable except as noted in HPI and below Hematologic/Lymphatic On Anticoagulants: No Patient History Surgical History (Updated 10/02/18 @ 10:28 by Adonis Mcdaniel MD) Status post right breast lumpectomy Social History household members: family Smoking Status: Former smoker Smoking Status: Former smoker alcohol intake frequency: 3 or more drinks per day Alcohol type: wine Substance Use Type: does not use Exam Initial Vital Signs Initial Vital Signs: Vital Signs Blood Pressure 216/105 H 11/20/23 21:43 Const General: cooperative, comfortable and No ill appearing HENMT Head: normal to inspection and normocephalic Mouth: oral mucosae normal Eyes Pupils: PERRL EOM: EOM intact bilaterally Resp Effort & Inspection: normal respiratory effort Auscultation: clear to auscultation bilaterally Cardio Rate: regular rate Rhythm: regular rhythm GI Inspection: normal to inspection and non-distended Palpation: soft and No tender Skin General: no rashes or lesions noted Neuro Other: Cranial nerves intact except for drooping of the right side of the face. Strength 5/5 upper extremity. 5/5 lower extremity. No gait disturbances. Patient does have dysarthria however I am able to make out the words she is trying to say. Cognition is unremarkable. Extrem General: capillary refill normal Scores GCS [place] coma scale eye opening: Spontaneous Lul coma scale verbal response: Orientated [place] coma scale motor response: Obey commands Lul coma scale total score: 15 Course Orders Ordered: ED Orders 11/20/23 21:41 CT head/brain wo con Stat 11/20/23 21:42 CT angio head and neck Stat EKG-12 Lead Stat 11/20/23 21:47 Complete Blood Count AUTO DIFF Stat Comprehensive Metabolic Panel Stat Ethanol (ETOH) Stat Lipase Stat Magnesium Stat PTT Partial Thromboplastin [place] Stat Prothrombin Time INR Stat Troponin & CK Cardiac Panel Stat Discontinued Medications Dexamethasone (Dexamethasone 10 Mg/Ml Vial) 10 mg IV NOW ONE Stop: 11/20/23 23:19 Last Admin: 11/20/23 23:30 Dose: 10 mg Documented By: BS Levetiracetam 1,000 mg/ Sodium (Chloride) 110 mls @ 440 mls/hr IV NOW ONE Stop: 11/21/23 00:15 Last Infusion: 11/21/23 00:48 Dose: Infused Documented By: Admin: 11/21/23 00:20 Dose: 440 mls/hr Documented By: ROSEANN Vital Signs Vital signs: Vital Signs - 8 hr 11/20/23 21:43 11/20/23 21:44 11/20/23 21:49 Temperature 98.7 F Pulse Rate 56 L 58 L Respiratory Rate 20 Blood Pressure 216/105 H 216/105 H Pulse Oximetry 99 97 Oxygen Delivery Method Room Air 11/20/23 22:00 11/20/23 22:02 11/20/23 22:02 Temperature Pulse Rate 107 H 52 L Respiratory Rate 18 19 Blood Pressure 190/89 H Pulse Oximetry 99 Oxygen Delivery Method 11/20/23 22:15 11/20/23 22:15 11/20/23 22:30 Temperature Pulse Rate 48 L Respiratory Rate 21 Blood Pressure 164/82 H 162/91 H Pulse Oximetry 97 Oxygen Delivery Method 11/20/23 22:30 11/20/23 22:45 11/20/23 22:45 Temperature Pulse Rate 49 L 53 L Respiratory Rate 20 24 Blood Pressure 173/99 H Pulse Oximetry 98 98 Oxygen Delivery Method Room Air 11/20/23 23:00 11/20/23 23:00 11/20/23 23:15 Temperature Pulse Rate 55 L Respiratory Rate 24 Blood Pressure 169/93 H 174/100 H Pulse Oximetry 99 Oxygen Delivery Method Room Air 11/20/23 23:15 11/20/23 23:30 11/20/23 23:30 Temperature Pulse Rate 54 L 51 L Respiratory Rate 25 H 18 Blood Pressure 177/97 H Pulse Oximetry 98 97 Oxygen Delivery Method 11/20/23 23:45 11/20/23 23:45 11/21/23 00:00 Temperature Pulse Rate 51 L 50 L Respiratory Rate 20 15 Blood Pressure 172/88 H Pulse Oximetry 97 96 Oxygen Delivery Method 11/21/23 00:00 11/21/23 00:15 11/21/23 00:15 Temperature Pulse Rate 49 L Respiratory Rate 14 Blood Pressure 161/78 H 163/85 H Pulse Oximetry 96 Oxygen Delivery Method MDM - Neuro Symptoms/Deficit Lab Data Attestation: I reviewed the patient's lab results. 11/20/23 21:47 11/20/23 21:47 Labs: Lab Results 11/20/23 Range/Units 21:47 WBC 6.2 (4.5-11.0) X10^3/uL RBC 4.51 (4.0-5.2) X10^6/uL Hgb 13.8 (12.0-16.0) g/dL Hct 40.7 (36-46) % MCV 90.3 (80-100) fL MCH 30.7 (26-34) PG MCHC 34.0 (30-36) % RDW 12.3 (11.6-14.8) % Plt Count 202 (150-400) X10^3/uL Neut % (Auto) 38.5 L (50-75) % Lymph % (Auto) 40.5 H (25-40) % [place] % (Auto) 11.7 (3-14) % Eos % (Auto) 7.9 H (2-4) % Baso % (Auto) 1.4 (0-2) % Neut # (Auto) 2400 (2188-4449) /uL Lymph # (Auto) 2500 (0292-9397) /uL [place] # (Auto) 700 (0-900) /uL Eos # (Auto) 500 H (0-450) /uL Baso # (Auto) 100 (0-100) /uL PT 10.1 (9.4-12.5) SECONDS INR 0.9 (0.9-1.3) APTT 36 (25.1-36.5) SECONDS Sodium 140 (137-145) mmol/L Potassium 3.9 (3.4-5.1) mmol/L Chloride 105 (98-107) mmol/L Carbon Dioxide 31 (22-32) mmol/L BUN 18 H (7-17) mg/dL Creatinine 0.65 (0.52-1.04) mg/dL Estimated GFR > 60 (>60) mL/min BUN/Creatinine Ratio 27.7 H (6-22) Glucose 104 (80-110) mg/dL Calcium 9.3 (8.4-10.2) mg/dL Magnesium 2.0 (1.6-2.3) mg/dL Total Bilirubin 0.3 (0.2-1.3) mg/dL AST 25 (14-36) IU/L ALT 17 (<35) IU/L Alkaline Phosphatase 68 (38-126) U/L Total Creatine Kinase 45 (30-135) U/L Troponin I < 0.012 (0.01-0.034) ng/mL Total Protein 7.3 (6.3-8.2) g/dL Albumin 4.2 (3.5-5.0) g/dL Globulin 3.1 (1.7-4.1) g/dL Albumin/Globulin Ratio 1.4 (1.0-2.8) Lipase 129 (23-300) U/L Ethyl Alcohol < 10 ( - 10) mg/dL Imaging Data CT scan - head: Radiologist's Impression: PROCEDURE: CT HEAD/BRAIN WO CON INDICATIONS: Slurred speech and facial droop TECHNIQUE: Noncontrast 4.5 mm thick angled axial sections acquired from the foramen magnum to the vertex, with coronal and sagittal reformats. For radiation dose reduction, the following was used: automated exposure control, adjustment of mA and/or kV according to patient size. COMPARISON: None. FINDINGS: Image quality: Diagnostic. CSF spaces: Basal cisterns are patent. No extra-axial fluid collections. Ventricles are normal in size and shape. Brain: 2.8 cm round left frontal lobe high-density mass with adjacent vasogenic edema. At the same axial level, there is a vague heterogeneous cortical mass in the right frontal lobe measuring about 1.3 cm also with adjacent vasogenic edema, more posteriorly. There is no midline shift or mahesh herniation. There is no acute intraparenchymal or intraventricular hemorrhage. Skull and face: Calvarium and visualized facial bones are intact, without suspicious lesions. Sinuses: Visualized sinuses and mastoids are clear. IMPRESSION: Probable bilateral brain masses with adjacent vasogenic edema most suggestive of metastatic disease. Discussed with Dr. Stiles in the emergency room at 22 46 hours. ECG Data Attestation: I personally reviewed and interpreted this ECG as follows: Interpretation: Sinus bradycardia Ventricular rate of 50 Normal axis QRS 1-2 milliseconds Left bundle-branch block No ST T wave changes MDM Narrative Medical decision making narrative: Last known normal was several days ago. Head CT concern for bilateral frontal lobe lesions. Does have edema. She was given 10 mg of Decadron. Neurologic findings are the dysarthria in the right-sided facial droop. Low suspicion for CVA. No indication of intracranial hemorrhage. Discussed the case with Dr. Wray neurosurgery at [facility]. Recommended giving 1 g of Keppra which was administered here in the ER. Patient does require transfer for further evaluation and treatment. Discussed the need for transfer with the family. They expressed understanding and agreement. Patient is stable for transport. CTA was pending at the time of discharge. Discharge Plan Departure Patient Disposition: [facility] Clinical Impression: Brain mass Prescriptions: No Action atenolol 25 MG tablet 25 mg PO BID Qty: 0 CA PANTOTHENATE/FOLIC ACID/VIT (MULTIVITAMIN) 1 tab PO QDAY Qty: 0 CALCIUM CARBONATE (#CALCIUM) 500 mg PO Q DAY Qty: 0 CHOLECALCIFEROL (VITAMIN D3) (VITAMIN D) Q DAY Qty: 0 [Vitamin B12 ] QMONTH Qty: 0 Referrals: Traci Garcia MD [Primary Care Provider] -
[2023-11-20] MEDS: DEXAMETHASONE 10 MG/ML VIAL IV (23:30)
[2023-11-21] VITALS: BP 161/78; PULSE 50; RESP 15; O2SAT 96
[2023-11-21 00:15] VITALS: BP 163/85; PULSE 49; RESP 14; O2SAT 96
[2023-11-21] MEDS: levETIRAcetam 1,000 MG in SODIUM CHLORIDE 0.9% 100 ML 440 MG IV (00:20)
[2023-11-21 00:30] VITALS: BP 148/76; PULSE 54; RESP 15; O2SAT 94
[2023-11-21 00:46] VITALS: BP 168/76; PULSE 74; RESP 20
[2023-11-21 01:00] VITALS: PULSE 55; RESP 19; O2SAT 96
[2023-11-21 01:01] VITALS: BP 172/93; PULSE 56; RESP 18; O2SAT 96
--- NOTE | 2023-11-21 01:22 | PC.NURSE ---
report given to CCT crew, ISIAH Coleman
--- NOTE | 2023-11-21 01:31 | PC.NURSE ---
[facility] accepted by Vandana Woodruff [facility] nurse to nurse Pt to arrive at facility at 1600 11/21/2023
== END 2023-11-21 01:33 | disposition short-term general hospital (02) ==
PROVIDERS: Emergency Provider Emergency Medicine; PCP Internal Medicine
DX: G93.89 Other specified disorders of brain (principal); R00.1 Bradycardia, unspecified; R07.9 Chest pain, unspecified; R47.81 Slurred speech
CPT/HCPCS: 36415; 70450; 70496; 70498; 80053; 80320; 82550; 83690; 83735; 84484; 85025; 85610; 85730; 93005; 96365; 96375; 99285; J1100; J1953; Q9967

== ENCOUNTER 2023-12-13 12:11 | Emergency (ER) | payer MEDICARE, SELFPAY ==
[2023-12-13] VITALS (85 sets, daily range): BP systolic 73–154; BP diastolic 42–75; PULSE 51–187; RESP 8–26; TEMP 36.6; O2SAT 92–100; BMI 20.5
--- NOTE | 2023-12-13 12:31 | DI.CT.S_ITS ---
PROCEDURE: CT HEAD/BRAIN WO CON INDICATIONS: GLF, AMS, RECENT BRAIN TUMOR RESECTION TECHNIQUE: Noncontrast 4.5 mm thick angled axial sections acquired from the foramen magnum to the vertex, with coronal and sagittal reformats. For radiation dose reduction, the following was used: automated exposure control, adjustment of mA and/or kV according to patient size. COMPARISON: [facility], CT, CT HEAD/BRAIN WO CON, 11/20/2023, 21:47. FINDINGS: Image quality: Diagnostic. CSF spaces: Basal cisterns are patent. Left frontal extra-axial collection measuring up to 8 mm which is hypoattenuating and similar attenuation to CSF, likely postsurgical etiology. Hyperattenuating material deep to the craniotomy on the left, likely postsurgical in etiology. The ventricles are symmetric in size and shape. Brain: Postsurgical changes from resection of a left posterior frontal mass. Hypoattenuation is seen within the resection bed which may represent edema. Hypoattenuation is seen within the right frontal lobe, stable compared to prior with associated subtle lesion measuring approximately 1.3 cm (10/23). No intracranial bleeds or masses. There is cerebral volume loss for age, with resultant ventricular and sulcal prominence. There are periventricular and deep white matter chronic small vessel ischemic changes. There is intracranial internal carotid artery atherosclerosis. Skull and face: Left-sided craniotomy changes. Calvarium and visualized facial bones appear intact, without suspicious lesions. Sinuses: Visualized sinuses and mastoids are clear. IMPRESSION: 1. Postsurgical changes from left frontal lobe mass resection. Residual hypoattenuation in the resection bed likely represents edema. 2. Extra-axial collections involving the left cerebral convexity as described above which are favored to be postsurgical in etiology. Consider short-term follow-up to assess for stability. 3. Hypoattenuation within the right frontal lobe with subtle 1.3 cm lesion, most consistent with metastatic disease. No other definite metastatic lesions are identified, however CT has low sensitivity for the detection of intracranial metastatic disease.. Dictated by: Valente Gonzalez M.D. on 12/13/2023 at 14:17 Approved by: Valente Gonzalez M.D. on 12/13/2023 at 14:22
--- NOTE | 2023-12-13 12:31 | DI.RAD.S_ITS ---
PROCEDURE: XR CHEST 1V INDICATIONS: GLF, AMS, RECENT BRAIN TUMOR RESECTION TECHNIQUE: One view of the chest was acquired. COMPARISON: None. FINDINGS: Surgical changes and devices: Surgical clips projecting over the right chest wall. Lungs and pleura: Lungs are clear. No pleural effusions or pneumothorax. Mediastinum: Mediastinal contours appear normal. Heart size is normal. Bones and chest wall: No suspicious bony lesions. Overlying soft tissues appear unremarkable. IMPRESSION: No acute cardiopulmonary abnormality is seen. Dictated by: Valente Gonzalez M.D. on 12/13/2023 at 13:29 Approved by: Valente Gonzalez M.D. on 12/13/2023 at 13:30
--- NOTE | 2023-12-13 12:52 | ED.AMS ---
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 Son at bedside provides most of the history. He states that she had a ground level fall approximately 30 minutes prior to arrival, landing on her hands and knees. He denies that the patient hit her head or lost consciousness. Son states that the patient seems a little ?wobbly? and ?woozy?. Patient had resection of brain tumor at [facility] on 11/21. She was set to start chemotherapy and gamma knife radiation soon. Patient has had slurred speech and right-sided weakness since her surgery. Related Data Home Medications Medication Instructions Recorded Confirmed CA PANTOTHENATE/FOLIC ACID/VIT 1 tab PO QDAY ##0 04/01/13 04/18/22 (MULTIVITAMIN) CALCIUM CARBONATE (#CALCIUM) 500 mg PO Q DAY ##0 04/01/13 04/18/22 CHOLECALCIFEROL (VITAMIN D3) Q DAY ##0 04/01/13 04/18/22 (VITAMIN D) [Vitamin B12 ] QMONTH ##0 04/01/13 04/18/22 atenolol 25 mg tablet 25 mg PO BID ##0 04/01/13 04/18/22 Allergies Allergy/AdvReac Type Severity Reaction Status Date / Time No Known Drug Allergies Allergy Verified 04/18/22 13:47 Patient History <Shannan Mayo MD - Last Filed: 12/16/23 03:50> Surgical History (Updated 10/02/18 @ 10:28 by Adonis Mcdaniel MD) Status post right breast lumpectomy Social History household members: family Smoking Status: Former smoker Smoking Status: Former smoker alcohol intake frequency: 3 or more drinks per day Alcohol type: wine Substance Use Type: does not use Exam <Shannan Mayo MD - Last Filed: 12/16/23 03:50> Initial Vital Signs Initial Vital Signs: Vital Signs Temperature 97.8 F 12/13/23 12:17 Pulse Rate 55 L 12/13/23 12:17 Respiratory Rate 16 12/13/23 12:17 Blood Pressure 73/42 L 12/13/23 12:17 Pulse Oximetry 100 12/13/23 12:17 Oxygen Delivery Method Room Air 12/13/23 12:17 Const: Awake, alert, ill-appearing, nontoxic Cardiac: Bradycardia, regular rhythm RESP: unlabored, clear bilaterally, no wheezing Skin: Warm, Dry, intact, no rashes Neuro: AO x3, slurred speech (baseline), moves all extremities <Topher Salazar DO - Last Filed: 12/13/23 22:43> Initial Vital Signs Initial Vital Signs: Vital Signs Temperature 97.8 F 12/13/23 12:17 Pulse Rate 55 L 12/13/23 12:17 Respiratory Rate 16 12/13/23 12:17 Blood Pressure 73/42 L 12/13/23 12:17 Pulse Oximetry 100 12/13/23 12:17 Oxygen Delivery Method Room Air 12/13/23 12:17 Course <Shanann Mayo MD - Last Filed: 12/16/23 03:50> Orders Ordered: Discontinued Medications Sodium Chloride (Normal Saline 0.9%) 1,000 mls @ 1,000 mls/hr IV BOLUS ONE Stop: 12/13/23 13:30 Last Infusion: 12/13/23 13:53 Dose: Infused Documented By: Admin: 12/13/23 13:00 Dose: 1,000 mls/hr Documented By: JOAO Vital Signs Vital signs: Vital Signs - 8 hr 12/13/23 14:45 12/13/23 14:50 12/13/23 14:50 Pulse Rate 64 Respiratory Rate 21 Blood Pressure 130/68 127/66 Pulse Oximetry 96 Oxygen Delivery Method Room Air Oxygen Flow Rate 12/13/23 14:55 12/13/23 14:55 12/13/23 15:00 Pulse Rate 65 Respiratory Rate 17 Blood Pressure 131/67 134/63 Pulse Oximetry 96 Oxygen Delivery Method Oxygen Flow Rate 12/13/23 15:00 12/13/23 15:05 12/13/23 15:05 Pulse Rate 64 64 Respiratory Rate 18 21 Blood Pressure 122/62 Pulse Oximetry 97 97 Oxygen Delivery Method Oxygen Flow Rate 12/13/23 15:10 12/13/23 15:10 12/13/23 15:15 Pulse Rate 65 66 Respiratory Rate 16 16 Blood Pressure 137/67 Pulse Oximetry 97 97 Oxygen Delivery Method Oxygen Flow Rate 12/13/23 15:15 12/13/23 15:20 12/13/23 15:20 Pulse Rate 64 Respiratory Rate 17 Blood Pressure 128/65 130/64 Pulse Oximetry 98 Oxygen Delivery Method Oxygen Flow Rate 12/13/23 15:25 12/13/23 15:25 12/13/23 15:30 Pulse Rate 64 70 Respiratory Rate 9 L 20 Blood Pressure 130/63 Pulse Oximetry 97 98 Oxygen Delivery Method Oxygen Flow Rate 12/13/23 15:30 12/13/23 15:35 12/13/23 15:35 Pulse Rate 68 Respiratory Rate 21 Blood Pressure 127/66 125/65 Pulse Oximetry 97 Oxygen Delivery Method Oxygen Flow Rate 12/13/23 15:40 12/13/23 15:40 12/13/23 15:45 Pulse Rate 67 69 Respiratory Rate 17 19 Blood Pressure 129/68 Pulse Oximetry 97 97 Oxygen Delivery Method Oxygen Flow Rate 12/13/23 15:45 12/13/23 15:50 12/13/23 15:50 Pulse Rate 65 Respiratory Rate 14 Blood Pressure 129/69 126/63 Pulse Oximetry 97 Oxygen Delivery Method Oxygen Flow Rate 12/13/23 15:55 12/13/23 15:55 12/13/23 16:00 Pulse Rate 67 70 Respiratory Rate 16 21 Blood Pressure 125/64 Pulse Oximetry 97 96 Oxygen Delivery Method Oxygen Flow Rate 12/13/23 16:00 12/13/23 16:05 12/13/23 16:05 Pulse Rate 72 Respiratory Rate 20 Blood Pressure 133/64 133/66 Pulse Oximetry 98 Oxygen Delivery Method Oxygen Flow Rate 12/13/23 16:10 12/13/23 16:10 12/13/23 16:15 Pulse Rate 68 Respiratory Rate 16 Blood Pressure 146/66 H 137/67 Pulse Oximetry 97 Oxygen Delivery Method Oxygen Flow Rate 12/13/23 16:15 12/13/23 16:20 12/13/23 16:20 Pulse Rate 69 69 Respiratory Rate 19 17 Blood Pressure 134/68 Pulse Oximetry 97 98 Oxygen Delivery Method Oxygen Flow Rate 12/13/23 16:25 12/13/23 16:25 12/13/23 16:30 Pulse Rate 69 71 Respiratory Rate 16 19 Blood Pressure 132/66 Pulse Oximetry 98 98 Oxygen Delivery Method Oxygen Flow Rate 12/13/23 16:30 12/13/23 16:35 12/13/23 16:35 Pulse Rate 72 Respiratory Rate 17 Blood Pressure 132/68 127/67 Pulse Oximetry 98 Oxygen Delivery Method Oxygen Flow Rate 12/13/23 16:40 12/13/23 16:40 12/13/23 16:45 Pulse Rate 72 70 Respiratory Rate 17 20 Blood Pressure 134/66 Pulse Oximetry 98 99 Oxygen Delivery Method Oxygen Flow Rate 12/13/23 16:45 12/13/23 16:50 12/13/23 16:50 Pulse Rate 72 Respiratory Rate 23 Blood Pressure 132/64 146/69 H Pulse Oximetry 98 Oxygen Delivery Method Oxygen Flow Rate 12/13/23 16:55 12/13/23 16:55 12/13/23 17:00 Pulse Rate 67 69 Respiratory Rate 24 21 Blood Pressure 134/63 Pulse Oximetry 97 95 Oxygen Delivery Method Nasal Cannula Oxygen Flow Rate 3 12/13/23 17:01 12/13/23 17:01 12/13/23 17:05 Pulse Rate 68 69 Respiratory Rate 17 19 Blood Pressure 146/66 H Pulse Oximetry 95 93 Oxygen Delivery Method Oxygen Flow Rate 12/13/23 17:05 12/13/23 17:10 12/13/23 17:10 Pulse Rate 70 Respiratory Rate 23 Blood Pressure 123/59 L 122/59 L Pulse Oximetry 94 Oxygen Delivery Method Oxygen Flow Rate 12/13/23 17:15 12/13/23 17:15 12/13/23 17:20 Pulse Rate 68 67 Respiratory Rate 18 19 Blood Pressure 131/60 Pulse Oximetry 93 93 Oxygen Delivery Method Nasal Cannula Oxygen Flow Rate 2 12/13/23 17:20 12/13/23 17:25 12/13/23 17:25 Pulse Rate 71 Respiratory Rate 18 Blood Pressure 116/57 L 122/60 Pulse Oximetry 95 Oxygen Delivery Method Oxygen Flow Rate 12/13/23 17:30 12/13/23 17:30 12/13/23 17:35 Pulse Rate 68 69 Respiratory Rate 20 20 Blood Pressure 131/63 Pulse Oximetry 95 95 Oxygen Delivery Method Oxygen Flow Rate 12/13/23 17:35 12/13/23 17:40 12/13/23 17:40 Pulse Rate 68 Respiratory Rate 17 Blood Pressure 133/63 123/59 L Pulse Oximetry 94 Oxygen Delivery Method Oxygen Flow Rate 12/13/23 17:45 12/13/23 17:45 12/13/23 17:50 Pulse Rate 71 72 Respiratory Rate 20 16 Blood Pressure 131/63 Pulse Oximetry 94 93 Oxygen Delivery Method Oxygen Flow Rate 12/13/23 17:50 12/13/23 17:55 12/13/23 17:55 Pulse Rate 65 Respiratory Rate 18 Blood Pressure 126/63 130/60 Pulse Oximetry 96 Oxygen Delivery Method Oxygen Flow Rate 12/13/23 18:00 12/13/23 18:00 12/13/23 18:05 Pulse Rate 72 68 Respiratory Rate 17 13 Blood Pressure 130/67 Pulse Oximetry 96 96 Oxygen Delivery Method Oxygen Flow Rate 12/13/23 18:05 12/13/23 18:10 12/13/23 18:10 Pulse Rate 72 Respiratory Rate 20 Blood Pressure 134/70 135/74 Pulse Oximetry 95 Oxygen Delivery Method Oxygen Flow Rate 12/13/23 18:15 12/13/23 18:15 12/13/23 18:20 Pulse Rate 68 69 Respiratory Rate 17 19 Blood Pressure 131/63 Pulse Oximetry 96 96 Oxygen Delivery Method Oxygen Flow Rate 12/13/23 18:20 12/13/23 18:25 12/13/23 18:25 Pulse Rate 70 Respiratory Rate 17 Blood Pressure 127/66 117/62 Pulse Oximetry 96 Oxygen Delivery Method Oxygen Flow Rate 12/13/23 18:30 12/13/23 18:30 12/13/23 18:35 Pulse Rate 69 70 Respiratory Rate 13 21 Blood Pressure 127/63 Pulse Oximetry 96 96 Oxygen Delivery Method Oxygen Flow Rate 12/13/23 18:35 12/13/23 18:40 12/13/23 18:40 Pulse Rate 71 Respiratory Rate 15 Blood Pressure 130/69 135/72 Pulse Oximetry 95 Oxygen Delivery Method Oxygen Flow Rate 12/13/23 18:45 12/13/23 18:45 12/13/23 18:50 Pulse Rate 67 69 Respiratory Rate 17 17 Blood Pressure 132/65 Pulse Oximetry 95 96 Oxygen Delivery Method Oxygen Flow Rate 12/13/23 18:50 12/13/23 18:55 12/13/23 18:55 Pulse Rate 67 Respiratory Rate 17 Blood Pressure 133/68 126/65 Pulse Oximetry 96 Oxygen Delivery Method Oxygen Flow Rate 12/13/23 19:00 12/13/23 19:00 12/13/23 19:05 Pulse Rate 72 Respiratory Rate 20 Blood Pressure 133/66 135/70 Pulse Oximetry 97 Oxygen Delivery Method Oxygen Flow Rate 12/13/23 19:05 12/13/23 19:10 12/13/23 19:10 Pulse Rate 71 70 Respiratory Rate 18 17 Blood Pressure 130/67 Pulse Oximetry 92 95 Oxygen Delivery Method Room Air Room Air Oxygen Flow Rate 12/13/23 19:15 12/13/23 19:15 12/13/23 19:20 Pulse Rate 71 68 Respiratory Rate 21 17 Blood Pressure 139/71 Pulse Oximetry 96 96 Oxygen Delivery Method Room Air Oxygen Flow Rate 12/13/23 19:20 12/13/23 19:25 12/13/23 19:25 Pulse Rate 66 Respiratory Rate 16 Blood Pressure 131/66 127/65 Pulse Oximetry 97 Oxygen Delivery Method Oxygen Flow Rate 12/13/23 19:30 12/13/23 19:30 12/13/23 19:35 Pulse Rate 69 74 Respiratory Rate 18 20 Blood Pressure 129/67 Pulse Oximetry 96 97 Oxygen Delivery Method Oxygen Flow Rate 12/13/23 19:35 12/13/23 19:40 12/13/23 19:40 Pulse Rate 70 Respiratory Rate 8 L Blood Pressure 137/73 131/72 Pulse Oximetry 95 Oxygen Delivery Method Oxygen Flow Rate 12/13/23 19:45 12/13/23 19:45 12/13/23 19:50 Pulse Rate 77 Respiratory Rate 19 Blood Pressure 132/74 139/68 Pulse Oximetry 96 Oxygen Delivery Method Oxygen Flow Rate 12/13/23 19:50 12/13/23 19:55 12/13/23 19:55 Pulse Rate 70 73 Respiratory Rate 14 18 Blood Pressure 133/70 Pulse Oximetry 96 95 Oxygen Delivery Method Oxygen Flow Rate 12/13/23 20:00 12/13/23 20:00 12/13/23 20:05 Pulse Rate 73 75 Respiratory Rate 19 18 Blood Pressure 134/71 Pulse Oximetry 96 96 Oxygen Delivery Method Oxygen Flow Rate 12/13/23 20:05 12/13/23 20:10 12/13/23 20:10 Pulse Rate 76 Respiratory Rate 18 Blood Pressure 132/73 143/75 H Pulse Oximetry 96 Oxygen Delivery Method Oxygen Flow Rate 12/13/23 20:15 12/13/23 20:15 12/13/23 20:20 Pulse Rate 77 Respiratory Rate 21 Blood Pressure 143/73 H 140/68 Pulse Oximetry 96 Oxygen Delivery Method Oxygen Flow Rate 12/13/23 20:20 12/13/23 20:25 12/13/23 20:25 Pulse Rate 68 67 Respiratory Rate 20 17 Blood Pressure 134/64 Pulse Oximetry 95 94 Oxygen Delivery Method Oxygen Flow Rate 12/13/23 20:30 12/13/23 20:30 12/13/23 20:35 Pulse Rate 74 76 Respiratory Rate 21 20 Blood Pressure 142/74 H Pulse Oximetry 94 95 Oxygen Delivery Method Room Air Oxygen Flow Rate 12/13/23 20:35 Pulse Rate Respiratory Rate Blood Pressure 140/73 Pulse Oximetry Oxygen Delivery Method Oxygen Flow Rate <Topher Salazar DO - Last Filed: 12/13/23 22:43> Orders Ordered: Discontinued Medications Sodium Chloride (Normal Saline 0.9%) 1,000 mls @ 1,000 mls/hr IV BOLUS ONE Stop: 12/13/23 13:30 Last Infusion: 12/13/23 13:53 Dose: Infused Documented By: Admin: 12/13/23 13:00 Dose: 1,000 mls/hr Documented By: JOAO Vital Signs Vital signs: Vital Signs - 8 hr 12/13/23 14:45 12/13/23 14:50 12/13/23 14:50 Pulse Rate 64 Respiratory Rate 21 Blood Pressure 130/68 127/66 Pulse Oximetry 96 Oxygen Delivery Method Room Air Oxygen Flow Rate 12/13/23 14:55 12/13/23 14:55 12/13/23 15:00 Pulse Rate 65 Respiratory Rate 17 Blood Pressure 131/67 134/63 Pulse Oximetry 96 Oxygen Delivery Method Oxygen Flow Rate 12/13/23 15:00 12/13/23 15:05 12/13/23 15:05 Pulse Rate 64 64 Respiratory Rate 18 21 Blood Pressure 122/62 Pulse Oximetry 97 97 Oxygen Delivery Method Oxygen Flow Rate 12/13/23 15:10 12/13/23 15:10 12/13/23 15:15 Pulse Rate 65 66 Respiratory Rate 16 16 Blood Pressure 137/67 Pulse Oximetry 97 97 Oxygen Delivery Method Oxygen Flow Rate 12/13/23 15:15 12/13/23 15:20 12/13/23 15:20 Pulse Rate 64 Respiratory Rate 17 Blood Pressure 128/65 130/64 Pulse Oximetry 98 Oxygen Delivery Method Oxygen Flow Rate 12/13/23 15:25 12/13/23 15:25 12/13/23 15:30 Pulse Rate 64 70 Respiratory Rate 9 L 20 Blood Pressure 130/63 Pulse Oximetry 97 98 Oxygen Delivery Method Oxygen Flow Rate 12/13/23 15:30 12/13/23 15:35 12/13/23 15:35 Pulse Rate 68 Respiratory Rate 21 Blood Pressure 127/66 125/65 Pulse Oximetry 97 Oxygen Delivery Method Oxygen Flow Rate 12/13/23 15:40 12/13/23 15:40 12/13/23 15:45 Pulse Rate 67 69 Respiratory Rate 17 19 Blood Pressure 129/68 Pulse Oximetry 97 97 Oxygen Delivery Method Oxygen Flow Rate 12/13/23 15:45 12/13/23 15:50 12/13/23 15:50 Pulse Rate 65 Respiratory Rate 14 Blood Pressure 129/69 126/63 Pulse Oximetry 97 Oxygen Delivery Method Oxygen Flow Rate 12/13/23 15:55 12/13/23 15:55 12/13/23 16:00 Pulse Rate 67 70 Respiratory Rate 16 21 Blood Pressure 125/64 Pulse Oximetry 97 96 Oxygen Delivery Method Oxygen Flow Rate 12/13/23 16:00 12/13/23 16:05 12/13/23 16:05 Pulse Rate 72 Respiratory Rate 20 Blood Pressure 133/64 133/66 Pulse Oximetry 98 Oxygen Delivery Method Oxygen Flow Rate 12/13/23 16:10 12/13/23 16:10 12/13/23 16:15 Pulse Rate 68 Respiratory Rate 16 Blood Pressure 146/66 H 137/67 Pulse Oximetry 97 Oxygen Delivery Method Oxygen Flow Rate 12/13/23 16:15 12/13/23 16:20 12/13/23 16:20 Pulse Rate 69 69 Respiratory Rate 19 17 Blood Pressure 134/68 Pulse Oximetry 97 98 Oxygen Delivery Method Oxygen Flow Rate 12/13/23 16:25 12/13/23 16:25 12/13/23 16:30 Pulse Rate 69 71 Respiratory Rate 16 19 Blood Pressure 132/66 Pulse Oximetry 98 98 Oxygen Delivery Method Oxygen Flow Rate 12/13/23 16:30 12/13/23 16:35 12/13/23 16:35 Pulse Rate 72 Respiratory Rate 17 Blood Pressure 132/68 127/67 Pulse Oximetry 98 Oxygen Delivery Method Oxygen Flow Rate 12/13/23 16:40 12/13/23 16:40 12/13/23 16:45 Pulse Rate 72 70 Respiratory Rate 17 20 Blood Pressure 134/66 Pulse Oximetry 98 99 Oxygen Delivery Method Oxygen Flow Rate 12/13/23 16:45 12/13/23 16:50 12/13/23 16:50 Pulse Rate 72 Respiratory Rate 23 Blood Pressure 132/64 146/69 H Pulse Oximetry 98 Oxygen Delivery Method Oxygen Flow Rate 12/13/23 16:55 12/13/23 16:55 12/13/23 17:00 Pulse Rate 67 69 Respiratory Rate 24 21 Blood Pressure 134/63 Pulse Oximetry 97 95 Oxygen Delivery Method Nasal Cannula Oxygen Flow Rate 3 12/13/23 17:01 12/13/23 17:01 12/13/23 17:05 Pulse Rate 68 69 Respiratory Rate 17 19 Blood Pressure 146/66 H Pulse Oximetry 95 93 Oxygen Delivery Method Oxygen Flow Rate 12/13/23 17:05 12/13/23 17:10 12/13/23 17:10 Pulse Rate 70 Respiratory Rate 23 Blood Pressure 123/59 L 122/59 L Pulse Oximetry 94 Oxygen Delivery Method Oxygen Flow Rate 12/13/23 17:15 12/13/23 17:15 12/13/23 17:20 Pulse Rate 68 67 Respiratory Rate 18 19 Blood Pressure 131/60 Pulse Oximetry 93 93 Oxygen Delivery Method Nasal Cannula Oxygen Flow Rate 2 12/13/23 17:20 12/13/23 17:25 12/13/23 17:25 Pulse Rate 71 Respiratory Rate 18 Blood Pressure 116/57 L 122/60 Pulse Oximetry 95 Oxygen Delivery Method Oxygen Flow Rate 12/13/23 17:30 12/13/23 17:30 12/13/23 17:35 Pulse Rate 68 69 Respiratory Rate 20 20 Blood Pressure 131/63 Pulse Oximetry 95 95 Oxygen Delivery Method Oxygen Flow Rate 12/13/23 17:35 12/13/23 17:40 12/13/23 17:40 Pulse Rate 68 Respiratory Rate 17 Blood Pressure 133/63 123/59 L Pulse Oximetry 94 Oxygen Delivery Method Oxygen Flow Rate 12/13/23 17:45 12/13/23 17:45 12/13/23 17:50 Pulse Rate 71 72 Respiratory Rate 20 16 Blood Pressure 131/63 Pulse Oximetry 94 93 Oxygen Delivery Method Oxygen Flow Rate 12/13/23 17:50 12/13/23 17:55 12/13/23 17:55 Pulse Rate 65 Respiratory Rate 18 Blood Pressure 126/63 130/60 Pulse Oximetry 96 Oxygen Delivery Method Oxygen Flow Rate 12/13/23 18:00 12/13/23 18:00 12/13/23 18:05 Pulse Rate 72 68 Respiratory Rate 17 13 Blood Pressure 130/67 Pulse Oximetry 96 96 Oxygen Delivery Method Oxygen Flow Rate 12/13/23 18:05 12/13/23 18:10 12/13/23 18:10 Pulse Rate 72 Respiratory Rate 20 Blood Pressure 134/70 135/74 Pulse Oximetry 95 Oxygen Delivery Method Oxygen Flow Rate 12/13/23 18:15 12/13/23 18:15 12/13/23 18:20 Pulse Rate 68 69 Respiratory Rate 17 19 Blood Pressure 131/63 Pulse Oximetry 96 96 Oxygen Delivery Method Oxygen Flow Rate 12/13/23 18:20 12/13/23 18:25 12/13/23 18:25 Pulse Rate 70 Respiratory Rate 17 Blood Pressure 127/66 117/62 Pulse Oximetry 96 Oxygen Delivery Method Oxygen Flow Rate 12/13/23 18:30 12/13/23 18:30 12/13/23 18:35 Pulse Rate 69 70 Respiratory Rate 13 21 Blood Pressure 127/63 Pulse Oximetry 96 96 Oxygen Delivery Method Oxygen Flow Rate 12/13/23 18:35 12/13/23 18:40 12/13/23 18:40 Pulse Rate 71 Respiratory Rate 15 Blood Pressure 130/69 135/72 Pulse Oximetry 95 Oxygen Delivery Method Oxygen Flow Rate 12/13/23 18:45 12/13/23 18:45 12/13/23 18:50 Pulse Rate 67 69 Respiratory Rate 17 17 Blood Pressure 132/65 Pulse Oximetry 95 96 Oxygen Delivery Method Oxygen Flow Rate 12/13/23 18:50 12/13/23 18:55 12/13/23 18:55 Pulse Rate 67 Respiratory Rate 17 Blood Pressure 133/68 126/65 Pulse Oximetry 96 Oxygen Delivery Method Oxygen Flow Rate 12/13/23 19:00 12/13/23 19:00 12/13/23 19:05 Pulse Rate 72 Respiratory Rate 20 Blood Pressure 133/66 135/70 Pulse Oximetry 97 Oxygen Delivery Method Oxygen Flow Rate 12/13/23 19:05 12/13/23 19:10 12/13/23 19:10 Pulse Rate 71 70 Respiratory Rate 18 17 Blood Pressure 130/67 Pulse Oximetry 92 95 Oxygen Delivery Method Room Air Room Air Oxygen Flow Rate 12/13/23 19:15 12/13/23 19:15 12/13/23 19:20 Pulse Rate 71 68 Respiratory Rate 21 17 Blood Pressure 139/71 Pulse Oximetry 96 96 Oxygen Delivery Method Room Air Oxygen Flow Rate 12/13/23 19:20 12/13/23 19:25 12/13/23 19:25 Pulse Rate 66 Respiratory Rate 16 Blood Pressure 131/66 127/65 Pulse Oximetry 97 Oxygen Delivery Method Oxygen Flow Rate 12/13/23 19:30 12/13/23 19:30 12/13/23 19:35 Pulse Rate 69 74 Respiratory Rate 18 20 Blood Pressure 129/67 Pulse Oximetry 96 97 Oxygen Delivery Method Oxygen Flow Rate 12/13/23 19:35 12/13/23 19:40 12/13/23 19:40 Pulse Rate 70 Respiratory Rate 8 L Blood Pressure 137/73 131/72 Pulse Oximetry 95 Oxygen Delivery Method Oxygen Flow Rate 12/13/23 19:45 12/13/23 19:45 12/13/23 19:50 Pulse Rate 77 Respiratory Rate 19 Blood Pressure 132/74 139/68 Pulse Oximetry 96 Oxygen Delivery Method Oxygen Flow Rate 12/13/23 19:50 12/13/23 19:55 12/13/23 19:55 Pulse Rate 70 73 Respiratory Rate 14 18 Blood Pressure 133/70 Pulse Oximetry 96 95 Oxygen Delivery Method Oxygen Flow Rate 12/13/23 20:00 12/13/23 20:00 12/13/23 20:05 Pulse Rate 73 75 Respiratory Rate 19 18 Blood Pressure 134/71 Pulse Oximetry 96 96 Oxygen Delivery Method Oxygen Flow Rate 12/13/23 20:05 12/13/23 20:10 12/13/23 20:10 Pulse Rate 76 Respiratory Rate 18 Blood Pressure 132/73 143/75 H Pulse Oximetry 96 Oxygen Delivery Method Oxygen Flow Rate 12/13/23 20:15 12/13/23 20:15 12/13/23 20:20 Pulse Rate 77 Respiratory Rate 21 Blood Pressure 143/73 H 140/68 Pulse Oximetry 96 Oxygen Delivery Method Oxygen Flow Rate 12/13/23 20:20 12/13/23 20:25 12/13/23 20:25 Pulse Rate 68 67 Respiratory Rate 20 17 Blood Pressure 134/64 Pulse Oximetry 95 94 Oxygen Delivery Method Oxygen Flow Rate 12/13/23 20:30 12/13/23 20:30 12/13/23 20:35 Pulse Rate 74 76 Respiratory Rate 21 20 Blood Pressure 142/74 H Pulse Oximetry 94 95 Oxygen Delivery Method Room Air Oxygen Flow Rate 12/13/23 20:35 Pulse Rate Respiratory Rate Blood Pressure 140/73 Pulse Oximetry Oxygen Delivery Method Oxygen Flow Rate MDM - Altered Mental Status <Shannan Mayo MD - Last Filed: 12/16/23 03:50> Differential Diagnosis Differential diagnosis: Likely alcoholic intoxication, altered mental status and delirium Lab Data 12/13/23 12:56 12/13/23 12:56 Labs: Lab Results 12/13/23 12/13/23 Range/Units 12:56 17:00 WBC 11.0 (4.5-11.0) X10^3/uL RBC 4.04 (4.0-5.2) X10^6/uL Hgb 12.2 (12.0-16.0) g/dL Hct 36.5 (36-46) % MCV 90.5 (80-100) fL MCH 30.2 (26-34) PG MCHC 33.4 (30-36) % RDW 11.8 (11.6-14.8) % Plt Count 189 (150-400) X10^3/uL Neut % (Auto) 67.5 (50-75) % Lymph % (Auto) 19.2 L (25-40) % [place] % (Auto) 10.3 (3-14) % Eos % (Auto) 2.2 (2-4) % Baso % (Auto) 0.8 (0-2) % Neut # (Auto) 7400 H (1624-4146) /uL Lymph # (Auto) 2100 (1567-7198) /uL [place] # (Auto) 1100 H (0-900) /uL Eos # (Auto) 200 (0-450) /uL Baso # (Auto) 100 (0-100) /uL PT 12.3 (9.4-12.5) SECONDS INR 1.1 (0.9-1.3) Sodium 138 (137-145) mmol/L Potassium 3.8 (3.4-5.1) mmol/L Chloride 106 (98-107) mmol/L Carbon Dioxide 28 (22-32) mmol/L BUN 18 H (7-17) mg/dL Creatinine 0.77 (0.52-1.04) mg/dL Estimated GFR > 60 (>60) mL/min BUN/Creatinine Ratio 23.4 H (6-22) Glucose 109 (80-110) mg/dL Lactate 1.2 (0.7-2.1) mmol/L Calcium 9.3 (8.4-10.2) mg/dL Total Bilirubin 0.8 (0.2-1.3) mg/dL AST 17 (14-36) IU/L ALT 13 (<35) IU/L Alkaline Phosphatase 67 (38-126) U/L Total Protein 7.1 (6.3-8.2) g/dL Albumin 4.0 (3.5-5.0) g/dL Globulin 3.1 (1.7-4.1) g/dL Albumin/Globulin Ratio 1.3 (1.0-2.8) Urine Color Yellow Urine Appearance Clear Urine pH 6.0 (4.5-8.0) Ur Specific [place] 1.020 (1.000-1.035) Urine Protein Trace H (Negative) Urine Glucose (UA) Negative (Negative) g/dL Urine Ketones 1+ H (NEGATIVE) Urine Occult Blood Trace-intact (Negative) Urine Nitrate Negative (Negative) Urine Bilirubin Negative (NEGATIVE) Urine Urobilinogen 0.2 (0.2) E.U./dL Ur Leukocyte Esterase Trace H (NEGATIVE) Urine RBC 0-1/hpf (0-5/HPF) Urine WBC 1-5/hpf (0-5/HPF) Ur Squamous Epith Cells 0-1 /hpf (0-5/HPF) Urine Bacteria None seen (None) Hyaline Casts 1-5/lpf (None) Ur Culture Indicated? Cult not indicated Vol Urine Centrifuged 10ml (spun) Imaging Data CT scan - head: Radiologist's Impression: PROCEDURE: CT HEAD/BRAIN WO CON INDICATIONS: GLF, AMS, RECENT BRAIN TUMOR RESECTION TECHNIQUE: Noncontrast 4.5 mm thick angled axial sections acquired from the foramen magnum to the vertex, with coronal and sagittal reformats. For radiation dose reduction, the following was used: automated exposure control, adjustment of mA and/or kV according to patient size. COMPARISON: [facility], CT, CT HEAD/BRAIN WO CALV[place], 11/20/2023, 21:47. FINDINGS: Image quality: Diagnostic. CSF spaces: Basal cisterns are patent. Left frontal extra-axial collection measuring up to 8 mm which is hypoattenuating and similar attenuation to CSF, likely postsurgical etiology. Hyperattenuating material deep to the craniotomy on the left, likely postsurgical in etiology. The ventricles are symmetric in size and shape. Brain: Postsurgical changes from resection of a left posterior frontal mass. Hypoattenuation is seen within the resection bed which may represent edema. Hypoattenuation is seen within the right frontal lobe, stable compared to prior with associated subtle lesion measuring approximately 1.3 cm (10/23). No intracranial bleeds or masses. There is cerebral volume loss for age, with resultant ventricular and sulcal prominence. There are periventricular and deep white matter chronic small vessel ischemic changes. There is intracranial internal carotid artery atherosclerosis. Skull and face: Left-sided craniotomy changes. Calvarium and visualized facial bones appear intact, without suspicious lesions. Sinuses: Visualized sinuses and mastoids are clear. IMPRESSION: 1. Postsurgical changes from left frontal lobe mass resection. Residual hypoattenuation in the resection bed likely represents edema. 2. Extra-axial collections involving the left cerebral convexity as described above which are favored to be postsurgical in etiology. Consider short-term follow-up to assess for stability. 3. Hypoattenuation within the right frontal lobe with subtle 1.3 cm lesion, most consistent with metastatic disease. No other definite metastatic lesions are identified, however CT has low sensitivity for the detection of intracranial metastatic disease.. Dictated by: Valente Gonzalez M.D. on 12/13/2023 at 14:17 Approved by: Valente Gonzalez M.D. on 12/13/2023 at 14:22 MDM Narrative Medical decision making narrative: Increasing sleepiness, off balance, ground level fall today without head trauma. Patient initially hypotensive on arrival with blood pressure 73/42. Taken quickly to ER bed and IV established. Patient has slurred speech and right arm weakness, however this is chronic for the patient. IV fluids ordered. Laboratory work is reviewed, no significant abnormalities. CT brain shows extra-axial fluid collections on the left-hand side, favored to be postsurgical, however I have no recent priors for comparison. Call placed to [facility] neurosurgery for consult. [phone] -still pending call back from Neurosurgery, care of patient is signed out to Dr. Marie Salazar: Received turned over. Review patient's history and physical and workup to this point. I did discuss the case with Dr. Ferreira neurosurgery at [facility] who was able to review the head CT from today compared with her postoperative. She stated that the findings today are expected from her postoperative course. No specific indication why she was having the weakness that brought her in today. Patient states she was feeling much better. Her blood pressure has improved. She was able to get up and walk around the emergency department. Plan will be is to discharge patient home and have her keep all of her scheduled medical appointments that are coming up in the next 1-2 weeks <Topher Salazar, DO - Last Filed: 12/13/23 22:43> Lab Data Labs: Lab Results 12/13/23 12/13/23 Range/Units 12:56 17:00 WBC 11.0 (4.5-11.0) X10^3/uL RBC 4.04 (4.0-5.2) X10^6/uL Hgb 12.2 (12.0-16.0) g/dL Hct 36.5 (36-46) % MCV 90.5 (80-100) fL MCH 30.2 (26-34) PG MCHC 33.4 (30-36) % RDW 11.8 (11.6-14.8) % Plt Count 189 (150-400) X10^3/uL Neut % (Auto) 67.5 (50-75) % Lymph % (Auto) 19.2 L (25-40) % [place] % (Auto) 10.3 (3-14) % Eos % (Auto) 2.2 (2-4) % Baso % (Auto) 0.8 (0-2) % Neut # (Auto) 7400 H (3668-4044) /uL Lymph # (Auto) 2100 (3514-2994) /uL [place] # (Auto) 1100 H (0-900) /uL Eos # (Auto) 200 (0-450) /uL Baso # (Auto) 100 (0-100) /uL PT 12.3 (9.4-12.5) SECONDS INR 1.1 (0.9-1.3) Sodium 138 (137-145) mmol/L Potassium 3.8 (3.4-5.1) mmol/L Chloride 106 (98-107) mmol/L Carbon Dioxide 28 (22-32) mmol/L BUN 18 H (7-17) mg/dL Creatinine 0.77 (0.52-1.04) mg/dL Estimated GFR > 60 (>60) mL/min BUN/Creatinine Ratio 23.4 H (6-22) Glucose 109 (80-110) mg/dL Lactate 1.2 (0.7-2.1) mmol/L Calcium 9.3 (8.4-10.2) mg/dL Total Bilirubin 0.8 (0.2-1.3) mg/dL AST 17 (14-36) IU/L ALT 13 (<35) IU/L Alkaline Phosphatase 67 (38-126) U/L Total Protein 7.1 (6.3-8.2) g/dL Albumin 4.0 (3.5-5.0) g/dL Globulin 3.1 (1.7-4.1) g/dL Albumin/Globulin Ratio 1.3 (1.0-2.8) Urine Color Yellow Urine Appearance Clear Urine pH 6.0 (4.5-8.0) Ur Specific [place] 1.020 (1.000-1.035) Urine Protein Trace H (Negative) Urine Glucose (UA) Negative (Negative) g/dL Urine Ketones 1+ H (NEGATIVE) Urine Occult Blood Trace-intact (Negative) Urine Nitrate Negative (Negative) Urine Bilirubin Negative (NEGATIVE) Urine Urobilinogen 0.2 (0.2) E.U./dL Ur Leukocyte Esterase Trace H (NEGATIVE) Urine RBC 0-1/hpf (0-5/HPF) Urine WBC 1-5/hpf (0-5/HPF) Ur Squamous Epith Cells 0-1 /hpf (0-5/HPF) Urine Bacteria None seen (None) Hyaline Casts 1-5/lpf (None) Ur Culture Indicated? Cult not indicated Vol Urine Centrifuged 10ml (spun) MDM Narrative Medical decision making narrative: Increasing sleepiness, off balance, ground level fall today without head trauma. Patient initially hypotensive on arrival with blood pressure 73/42. Taken quickly to ER bed and IV established. Patient has slurred speech and right arm weakness, however this is chronic for the patient Laboratory work is reviewed, no significant abnormalities. CT brain shows extra-axial fluid collections on the left-hand side, favored to be postsurgical, however I have no recent priors for comparison. Call placed to [facility] neurosurgery for consult. 1800 -still pending call back from Neurosurgery, care of patient is signed out to Dr. Marie Salazar: Received turned over. Review patient's history and physical and workup to this point. I did discuss the case with Dr. Ferreira neurosurgery at [facility] who was able to review the head CT from today compared with her postoperative. She stated that the findings today are expected from her postoperative course. No specific indication why she was having the weakness that brought her in today. Patient states she was feeling much better. Her blood pressure has improved. She was able to get up and walk around the emergency department. Plan will be is to discharge patient home and have her keep all of her scheduled medical appointments that are coming up in the next 1-2 weeks Discharge Plan Departure Patient Disposition: Home Clinical Impression: Dizziness Instructions: DI for Dizziness-Nonvertigo Activity Restrictions/Additional Instructions: Recommend that you continue to take all of your medications as directed. Keep all of your scheduled medical appointments. Return to the emergency department for new or worsening symptoms. Prescriptions: No Action atenolol 25 MG tablet 25 mg PO BID Qty: 0 CA PANTOTHENATE/FOLIC ACID/VIT (MULTIVITAMIN) 1 tab PO QDAY Qty: 0 CALCIUM CARBONATE (#CALCIUM) 500 mg PO Q DAY Qty: 0 CHOLECALCIFEROL (VITAMIN D3) (VITAMIN D) Q DAY Qty: 0 [Vitamin B12 ] QMONTH Qty: 0 Referrals: Traci Garcia MD [Primary Care Provider] - Stand Alone Forms: Patient Portal/API
[2023-12-13] MEDS: SODIUM CHLORIDE 0.9% 1,000 ML 1000 ML IV (13:00)
[2023-12-13 13:15] LABS: Add Manual Diff / Slide Review NO; Basophils Absolute Auto 100 /uL (0-100); Basophils Percent Auto 0.8 % (0-2); Eosinophils Absolute Auto 200 /uL (0-450); Eosinophils Percent Auto 2.2 % (2-4); Hematocrit 36.5 % (36-46); Hemoglobin 12.2 g/dL (12.0-16.0); Lymphocytes Absolute Auto 2100 /uL (1100-4500); Lymphocytes Percent Auto 19.2 % (25-40); Mean Corpuscular HGB Conc 33.4 % (30-36); Mean Corpuscular Hemoglobin 30.2 PG (26-34); Mean Corpuscular Volume 90.5 fL (80-100); Monocytes Absolute Auto 1100 /uL (0-900); Monocytes Percent Auto 10.3 % (3-14); Neutrophils Absolute Auto 7400 /uL (1500-7000); Neutrophils Percent Auto 67.5 % (50-75); Platelet Count 189 X10^3/uL (150-400); Red Blood Cell Count 4.04 X10^6/uL (4.0-5.2); Red Cell Distribution Width 11.8 % (11.6-14.8)
--- NOTE | 2023-12-13 13:17 | DI.RAD.S_ITS ---
PROCEDURE: XR HAND LT MIN 3V INDICATIONS: fall , painful TECHNIQUE: 3 views of the hand(s) acquired. COMPARISON: [facility], , HAND 3V LEFT, 05/22/2009, 9:15. FINDINGS: Bones: No fractures or dislocations. Diffusely decreased osseous mineralization. Severe degenerative changes of the 1st CMC and triscaphe joint. Diffuse interphalangeal joint degeneration, severe involving the 2nd and 4th PIP. Carpal bones are normally aligned. No suspicious bony lesions. Soft tissues: No suspicious soft tissue calcifications. IMPRESSION: 1. No acute osseous abnormalities. 2. Severe degenerative changes of the hand. Dictated by: Valente Gonzalez M.D. on 12/13/2023 at 13:30 Approved by: Valente Gonzalez M.D. on 12/13/2023 at 13:35
[2023-12-13 13:22] LABS: INR 1.1 (0.9-1.3); Prothrombin Time 12.3 SECONDS (9.4-12.5)
[2023-12-13 13:28] LABS: Alanine Aminotransferase 13 IU/L (<35); Albumin Globulin Ratio 1.3 (1.0-2.8); Alkaline Phosphatase 67 U/L (38-126); Aspartate Aminotransferase 17 IU/L (14-36); BUN Creatinine Ratio 23.4 (6-22); Bilirubin Total 0.8 mg/dL (0.2-1.3); Blood Urea Nitrogen 18 mg/dL (7-17); Calcium 9.3 mg/dL (8.4-10.2); Carbon Dioxide 28 mmol/L (22-32); Chloride 106 mmol/L (98-107); Estimated Glomerular Filt Rate > 60 mL/min (>60); Globulin 3.1 g/dL (1.7-4.1); Glucose 109 mg/dL (80-110); HEMOLYSIS < 15 (0-50); Lactate (Lactic Acid) 1.2 mmol/L (0.7-2.1); Potassium 3.8 mmol/L (3.4-5.1); Sodium 138 mmol/L (137-145); Total Protein 7.1 g/dL (6.3-8.2)
--- NOTE | 2023-12-13 17:03 | PC.NURSE ---
pt has aphasia, with speech impairment. son reports that her speech is improved from a few weeks ago
[2023-12-13 17:13] LABS: Appearance Urine UA CLEAR; Bilirubin Urine UA NEGATIVE (NEGATIVE); Color Urine UA YELLOW; Glucose Urine UA NEGATIVE (Negative); Ketones Urine UA 1+ (NEGATIVE); Leukocyte Esterase Urine UA TRACE (NEGATIVE); Nitrite Urine UA NEGATIVE (Negative); Occult Blood Urine UA TRACE-INTACT (Negative); Protein Urine UA TRACE (Negative); Urobilinogen Urine UA 0.2 E.U./dL (0.2)
[2023-12-13 17:29] LABS: Bacteria Urine None Seen; RBC Urine 0-1/HPF (0-5/HPF); Squamous Epithelial Cell Urine 0-1 /HPF (0-5/HPF); Urine Volume 10mL (spun); WBC Urine 1-5/HPF (0-5/HPF)
[2023-12-13 17:30] LABS: Culture Indicated Urine Cult Not Indicated; Hyaline Casts Urine 1-5/LPF
--- NOTE | 2023-12-13 20:24 | PC.NURSE ---
Pt ambulated very well around Er with tech. MD Salazar visualized this.
== END 2023-12-13 21:00 | disposition home or self-care (01) ==
PROVIDERS: Emergency Medicine; Emergency Provider Emergency Medicine; PCP Internal Medicine
DX: R42 Dizziness and giddiness (principal); M79.642 Pain in left hand; Z85.841 Personal history of malignant neoplasm of brain; W18.30XA Fall on same level, unspecified, initial encounter
CPT/HCPCS: 36415; 70450; 71045; 73130; 80053; 81001; 83605; 85025; 85610; 93005; 93010; 96360; 99284

== ENCOUNTER → 2024-01-02 10:33 | Outpatient (CLI) | payer MEDICARE, SELFPAY ==
[2024-01-02 11:59] LABS: Add Manual Diff / Slide Review NO; Basophils Absolute Auto 100 /uL (0-100); Eosinophils Absolute Auto 200 /uL (0-450); Eosinophils Percent Auto 2.7 % (2-4); Hematocrit 35.2 % (36-46); Lymphocytes Absolute Auto 1900 /uL (1100-4500); Lymphocytes Percent Auto 27.1 % (25-40); Mean Corpuscular Volume 88.1 fL (80-100); Monocytes Absolute Auto 400 /uL (0-900); Monocytes Percent Auto 6.4 % (3-14); Neutrophils Absolute Auto 4300 /uL (1500-7000); Neutrophils Percent Auto 62.8 % (50-75); Platelet Count 245 X10^3/uL (150-400); Red Cell Distribution Width 12.4 % (11.6-14.8); White Blood Cell Count 6.9 X10^3/uL (4.5-11.0)
[2024-01-02 12:42] LABS: Alanine Aminotransferase 13 IU/L (<35); Albumin 3.9 g/dL (3.5-5.0); Albumin Globulin Ratio 1.6 (1.0-2.8); Alkaline Phosphatase 71 U/L (38-126); Aspartate Aminotransferase 18 IU/L (14-36); BUN Creatinine Ratio 37.3 (6-22); Bilirubin Total 0.4 mg/dL (0.2-1.3); Blood Urea Nitrogen 19 mg/dL (7-17); Carbon Dioxide 30 mmol/L (22-32); Chloride 108 mmol/L (98-107); Estimated Glomerular Filt Rate > 60 mL/min (>60); Globulin 2.5 g/dL (1.7-4.1); Glucose 125 mg/dL (80-110); HEMOLYSIS < 15 (0-50); Potassium 4.2 mmol/L (3.4-5.1); Sodium 139 mmol/L (137-145); Total Protein 6.4 g/dL (6.3-8.2)
== END ==
LOC: LAB 11:20
PROVIDERS: PCP Internal Medicine; Referring Provider Nurse Practitioner; Visit Provider Nurse Practitioner
DX: C34.91 Malignant neoplasm of unspecified part of right bronchus or lung (principal)
CPT/HCPCS: 36415; 80053; 85025

== ENCOUNTER → 2024-01-15 13:32 | Outpatient (CLI) | payer MEDICARE, SELFPAY ==
[2024-01-15 14:33] LABS: Add Manual Diff / Slide Review NO; Basophils Absolute Auto 0 /uL (0-100); Basophils Percent Auto 0.2 % (0-2); Eosinophils Absolute Auto 300 /uL (0-450); Eosinophils Percent Auto 5.4 % (2-4); Hematocrit 34.5 % (36-46); Hemoglobin 11.8 g/dL (12.0-16.0); Lymphocytes Absolute Auto 900 /uL (1100-4500); Lymphocytes Percent Auto 14.4 % (25-40); Mean Corpuscular HGB Conc 34.1 % (30-36); Mean Corpuscular Hemoglobin 29.7 PG (26-34); Mean Corpuscular Volume 87.2 fL (80-100); Monocytes Absolute Auto 600 /uL (0-900); Monocytes Percent Auto 10.7 % (3-14); Neutrophils Absolute Auto 4200 /uL (1500-7000); Neutrophils Percent Auto 69.3 % (50-75); Platelet Count 123 X10^3/uL (150-400); Red Blood Cell Count 3.96 X10^6/uL (4.0-5.2); Red Cell Distribution Width 12.4 % (11.6-14.8)
[2024-01-15 14:57] LABS: Alanine Aminotransferase 13 IU/L (<35); Albumin Globulin Ratio 1.5 (1.0-2.8); Alkaline Phosphatase 78 U/L (38-126); Aspartate Aminotransferase 16 IU/L (14-36); Bilirubin Total 0.5 mg/dL (0.2-1.3); Blood Urea Nitrogen 19 mg/dL (7-17); Carbon Dioxide 28 mmol/L (22-32); Chloride 106 mmol/L (98-107); Estimated Glomerular Filt Rate > 60 mL/min (>60); Globulin 2.6 g/dL (1.7-4.1); Glucose 111 mg/dL (80-110); HEMOLYSIS < 15 (0-50); Sodium 137 mmol/L (137-145); Total Protein 6.6 g/dL (6.3-8.2)
== END ==
PROVIDERS: PCP Internal Medicine; Referring Provider Nurse Practitioner; Visit Provider Nurse Practitioner
DX: C34.91 Malignant neoplasm of unspecified part of right bronchus or lung (principal)
CPT/HCPCS: 36415; 80053; 85025

== ENCOUNTER 2024-10-29 11:56 | Emergency (ER) | payer MEDICARE, SELFPAY ==
[2024-10-29] VITALS (18 sets, daily range): BP systolic 85–127; BP diastolic 51–59; PULSE 72–83; RESP 18–25; TEMP 36.9; O2SAT 86–99; BMI 23.0
[2024-10-29 13:17] LABS: Influenza A - CEPHEID Flu A NEGATIVE (NEGATIVE); Influenza B - CEPHEID Flu B NEGATIVE (NEGATIVE); Respiratory Syncytial Virus Negative (Negative)
[2024-10-29 13:18] LABS: COVID-19 CEPHEID 4-PLEX PCR Negative (Negative)
--- NOTE | 2024-10-29 13:20 | DI.RAD.S_ITS ---
PROCEDURE: XR CHEST 1V INDICATIONS: suspected sepsis TECHNIQUE: One view of the chest was acquired. COMPARISON: [facility], CR, XR CHEST 1V, 12/13/2023, 13:10. FINDINGS AND IMPRESSION: On this single view study, no dense airspace disease or pleural effusion. Heart size is at the upper limit of normal, unchanged. Degenerative osseous findings. Right breast and axillary postsurgical changes. Dictated by: Fawad Wan M.D. on 10/29/2024 at 14:15 Approved by: Fawad Wan M.D. on 10/29/2024 at 14:15
--- NOTE | 2024-10-29 13:20 | EKG_ITS ---
[address] [address] Test Date: 2024-10-29 Pat Name: Lucita Mejias Department: [facility] Room: Gender: Female [employer] Crew: CLAUDIO : 1955 Requested By: Order Number: [id number] Reading MD: Thierry García Measurements Intervals [place] Rate: 73 P: 60 TN: 148 QRS: 12 QRSD: 122 T: 40 QT: 442 QTc: 486 Interpretive Statements Normal sinus rhythm Left bundle branch block Electronically Signed On 10-29-2024 17:31:23 PST by Thierry García
[2024-10-29] MEDS: SODIUM CHLORIDE 0.9% 1,000 ML 1000 ML IV ×2 (13:26→14:46)
[2024-10-29 13:31] LABS: Add Manual Diff / Slide Review NO; Basophils Absolute Auto 0 /uL (0-100); Basophils Percent Auto 0.4 % (0-2); Eosinophils Absolute Auto 200 /uL (0-450); Eosinophils Percent Auto 5.2 % (2-4); Hematocrit 39.1 % (36-46); Hemoglobin 12.9 g/dL (12.0-16.0); INR 1.1 (0.9-1.3); Lymphocytes Absolute Auto 800 /uL (1100-4500); Lymphocytes Percent Auto 21.2 % (25-40); Mean Corpuscular HGB Conc 33.1 % (30-36); Mean Corpuscular Hemoglobin 28.4 PG (26-34); Monocytes Absolute Auto 300 /uL (0-900); Monocytes Percent Auto 6.9 % (3-14); Neutrophils Absolute Auto 2400 /uL (1500-7000); Neutrophils Percent Auto 66.3 % (50-75); Platelet Count 82 X10^3/uL (150-400); Prothrombin Time 12.3 SECONDS (9.4-12.5); Red Blood Cell Count 4.54 X10^6/uL (4.0-5.2); Red Cell Distribution Width 13.1 % (11.6-14.8); White Blood Cell Count 3.6 X10^3/uL (4.5-11.0)
[2024-10-29 13:34] LABS: PTT Partial Thromboplastin Tim 37 SECONDS (25.1-36.5)
[2024-10-29 13:35] LABS: Alanine Aminotransferase 32 IU/L (<35); Albumin 4.5 g/dL (3.5-5.0); Albumin Globulin Ratio 1.7 (1.0-2.8); Alkaline Phosphatase 56 U/L (38-126); Aspartate Aminotransferase 44 IU/L (14-36); BUN Creatinine Ratio 16.4 (6-22); Bilirubin Total 0.4 mg/dL (0.2-1.3); Blood Urea Nitrogen 29 mg/dL (7-17); Calcium 9.3 mg/dL (8.4-10.2); Carbon Dioxide 16 mmol/L (22-32); Chloride 102 mmol/L (98-107); Estimated Glomerular Filt Rate 31 mL/min (>60); Globulin 2.6 g/dL (1.7-4.1); Glucose 90 mg/dL (80-110); HEMOLYSIS < 15 (0-50); Lipase 112 U/L (23-300); Potassium 4.5 mmol/L (3.4-5.1); Sodium 134 mmol/L (137-145); Total Protein 7.1 g/dL (6.3-8.2)
--- NOTE | 2024-10-29 13:48 | ED_ITS ---
HPI - Weakness General Chief complaint: Weakness Stated complaint: had the flu- getting chemo- dehydrated? Time Seen by Provider: 10/29/24 13:48 Source: patient, RN notes reviewed and old records reviewed Limitations: no limitations History of Present Illness HPI Narrative: 69-year-old female on oral chemo for lung cancer with brain metastases and gamma knife in December receives her oncology care at [facility]. Patient was on Keppra for prophylaxis she has not had prior seizures as well as oral chemotherapy daily and antihypertensive. She has had myalgias for the past week, notes some fevers at home subjectively. Some mild headache, no chest pain, no shortness of breath. Denies any cough cold congestion symptoms. No new nausea or vomiting. No abdominal back or flank pain. Patient has had chronic diarrhea since she has been on her oral chemotherapy but states it has been much worse this week with 4-5 episodes just in the last 12 hours. It has been much more frequent, has been watery. No black or bloody stools. She states typically she will have an episode every 1 or 2 days. She does not note no rashes. Had small ulceration on the perianal area which she states has healed but recently completed Bactrim for this. She politely defers examination of the area. No new swelling of extremities. Former smoker, occasional alcohol, no recreational drugs. She denies any allergies to medications. Related Data Home Medications Medication Instructions Recorded Confirmed levetiracetam 500 mg tablet 500 mg PO BID 10/19/24 10/19/24 (Keppra) osimertinib 80 mg tablet (Tagrisso) 80 mg PO DAILY 10/19/24 10/19/24 Allergies Allergy/AdvReac Type Severity Reaction Status Date / Time No Known Drug Allergies Allergy Verified 10/19/24 10:22 Review of Systems Review of Systems ROS Unobtainable: All systems reviewed & are unremarkable except as noted in HPI and below Patient History Surgical History Status post right breast lumpectomy Social History household members: family Smoking Status: Former smoker Smoking Status: Former smoker alcohol intake frequency: 3 or more drinks per day Alcohol type: wine Exam Narrative Exam Narrative: GENERAL: Alert and oriented x three, female in mild distress HEENT: Head normocephalic, atraumatic, EOMI, pupils reactive, face symmetric, moist mucous membranes NECK: Supple, full range of motion CARDIOVASCULAR: Regular rate and rhythm without murmurs, rubs or gallops. RESPIRATORY: Breath sounds equal bilaterally, no wheezes rales or rhonchi. ABDOMEN: Soft, nontender. Nondistended. Normoactive bowel sounds all 4 quadrants. No guarding or rebound, rigidity, no mass : No CVA tenderness, patient politely defers female genitourinary exam. EXTREMITIES: Normal range of motion, no clubbing or edema. Neurovascularly intact NEUROLOGICAL: Cranial nerves II through XII grossly intact. Moving all extremities SKIN: Warm, dry, no petechiae, no rashes or lesions. Initial Vital Signs Initial Vital Signs: Vital Signs Temperature 98.4 F 10/29/24 12:04 Pulse Rate 79 10/29/24 12:04 Respiratory Rate 18 10/29/24 12:04 Blood Pressure 88/58 L 10/29/24 12:04 Pulse Oximetry 95 10/29/24 12:04 Oxygen Delivery Method Room Air 10/29/24 12:04 Course Orders Ordered: ED Orders 10/29/24 11:15 Covid-19 + FLU A/B + RSV - PCR Stat 10/29/24 12:43 Complete Blood Count AUTO DIFF Stat Comprehensive Metabolic Panel Stat Lactate (Lactic Acid) Stat Lipase Stat PTT Partial Thromboplastin [place] Stat Procalcitonin Stat Prothrombin Time INR Stat 10/29/24 13:20 XR chest 1V Stat EKG-12 Lead Stat RT Consult Eval and Treat NOW 10/29/24 13:51 Blood Culture Stat 10/29/24 14:17 CT kidney ureter bladder (KUB) Stat 10/29/24 14:45 GI Panel (Film Array) Stat Ictotest Urine Stat Urine Microscopic Stat Discontinued Medications Sodium Chloride (Normal Saline 0.9%) 1,000 mls @ 1,000 mls/hr IV BOLUS ONE Stop: 10/29/24 14:19 Last Infusion: 10/29/24 14:47 Dose: Infused Documented By: Admin: 10/29/24 13:26 Dose: 1,000 mls/hr Documented By: GENARO Sodium Chloride (Normal Saline 0.9%) 1,000 mls @ 1,000 mls/hr IV BOLUS ONE Stop: 10/29/24 15:16 Last Infusion: 10/29/24 17:42 Dose: Infused Documented By: Admin: 10/29/24 14:46 Dose: 1,000 mls/hr Documented By: ANAM Ondansetron HCl (Ondansetron 4 Mg/2 Ml Inj) 4 mg IV NOW PRN PRN Reason: Nausea And Vomiting Ondansetron HCl (Ondansetron 4 Mg Odt) 4 mg SL NOW PRN PRN Reason: Nausea And Vomiting Vital Signs Vital signs: Vital Signs - 8 hr 10/29/24 12:04 10/29/24 12:22 10/29/24 12:49 Temperature 98.4 F Pulse Rate 79 77 73 Respiratory Rate 18 Blood Pressure 88/58 L 97/53 L 96/55 L Pulse Oximetry 95 96 97 Oxygen Delivery Method Room Air 10/29/24 13:00 10/29/24 13:30 10/29/24 14:00 Temperature Pulse Rate 75 73 72 Respiratory Rate 19 Blood Pressure 85/53 L 85/57 L 101/57 L Pulse Oximetry 95 95 98 Oxygen Delivery Method 10/29/24 14:30 10/29/24 14:49 10/29/24 15:01 Temperature Pulse Rate 76 78 75 Respiratory Rate 21 25 H 25 H Blood Pressure 103/51 L 95/52 L 119/55 L Pulse Oximetry 86 L 97 Oxygen Delivery Method 10/29/24 15:15 10/29/24 15:30 10/29/24 15:45 Temperature Pulse Rate 74 74 78 Respiratory Rate 23 24 23 Blood Pressure 121/55 L 107/59 L 111/57 L Pulse Oximetry 95 96 96 Oxygen Delivery Method Room Air 10/29/24 16:00 10/29/24 16:30 10/29/24 16:45 Temperature Pulse Rate 81 79 79 Respiratory Rate 23 23 22 Blood Pressure 107/55 L 119/53 L 116/59 L Pulse Oximetry 98 98 98 Oxygen Delivery Method Room Air 10/29/24 17:00 10/29/24 17:15 10/29/24 17:30 Temperature Pulse Rate 78 79 83 Respiratory Rate 22 25 H 22 Blood Pressure 109/55 L 104/51 L 127/59 L Pulse Oximetry 98 97 99 Oxygen Delivery Method Room Air MDM - Weakness Lab Data 10/29/24 12:43 10/29/24 12:43 Labs: Lab Results 10/29/24 10/29/24 10/29/24 Range/Units 11:15 12:43 14:45 WBC 3.6 L (4.5-11.0) X10^3/uL RBC 4.54 (4.0-5.2) X10^6/uL Hgb 12.9 (12.0-16.0) g/dL Hct 39.1 (36-46) % MCV 86.0 (80-100) fL MCH 28.4 (26-34) PG MCHC 33.1 (30-36) % RDW 13.1 (11.6-14.8) % Plt Count 82 L (150-400) X10^3/uL Neut % (Auto) 66.3 (50-75) % Lymph % (Auto) 21.2 L (25-40) % [place] % (Auto) 6.9 (3-14) % Eos % (Auto) 5.2 H (2-4) % Baso % (Auto) 0.4 (0-2) % Neut # (Auto) 2400 (3296-8839) /uL Lymph # (Auto) 800 L (3307-5161) /uL [place] # (Auto) 300 (0-900) /uL Eos # (Auto) 200 (0-450) /uL Baso # (Auto) 0 (0-100) /uL PT 12.3 (9.4-12.5) SECONDS INR 1.1 (0.9-1.3) APTT 37 H (25.1-36.5) SECONDS Sodium 134 L (137-145) mmol/L Potassium 4.5 (3.4-5.1) mmol/L Chloride 102 (98-107) mmol/L Carbon Dioxide 16 L (22-32) mmol/L BUN 29 H (7-17) mg/dL Creatinine 1.77 H (0.52-1.04) mg/dL Estimated GFR 31 L (>60) mL/min BUN/Creatinine Ratio 16.4 (6-22) Glucose 90 (80-110) mg/dL Lactate 1.0 (0.7-2.1) mmol/L Calcium 9.3 (8.4-10.2) mg/dL Total Bilirubin 0.4 (0.2-1.3) mg/dL AST 44 H (14-36) IU/L ALT 32 (<35) IU/L Alkaline Phosphatase 56 (38-126) U/L Total Protein 7.1 (6.3-8.2) g/dL Albumin 4.5 (3.5-5.0) g/dL Globulin 2.6 (1.7-4.1) g/dL Albumin/Globulin Ratio 1.7 (1.0-2.8) Lipase 112 (23-300) U/L Procalcitonin 0.219 (<0.5) ng/mL Ur Bilirubin Confirm Positive H (Negative) Urine RBC 5-10/hpf H (0-5/HPF) Urine WBC 0-1/hpf (0-5/HPF) Ur Squamous Epith Cells 1-5 /hpf (0-5/HPF) Urine Bacteria Occasional (0-1) (None) Hyaline Casts 1-5/lpf (None) Urine Mucus 2+ H (Negative) Ur Culture Indicated? Cult not indicated Vol Urine Centrifuged 10ml (spun) Stl C. cayetanensis PCR Not detected (Not Detect) Stool Rotavirus (PCR) Not detected (Not Detect) Stool Adenovirus (PCR) Not detected (Not Detect) Stool Astrovirus (PCR) Not detected (Not Detect) Stool Cryptosporidium PCR Not detected (Not Detect) Stl E.coli Shiga Tox PCR Not detected (Not Detect) St Sh/Enteroin Ecoli PCR Not detected (Not Detect) Stl Enterotoxigenic E PCR Not detected (Not Detect) Stool EPEC (PCR) Not detected (Not Detect) Stl E. histolytica PCR Not detected (Not Detect) Stool Giardia Lamblia PCR Not detected (Not Detect) Stool Sapovirus (PCR) Not detected (Not Detect) Stl P. shigelloides PCR Not detected (Not Detect) St Y.enterocolitica PCR Not detected (Not Detect) Stool Vibrio (PCR) Not detected (Not Detect) Stl Vibrio cholerae PCR Not detected (Not Detect) Stl Enteroaggr Ecoli PCR Not detected (Not Detect) Stl Norovirus GI/GII PCR Not detected (Not Detect) Campylobacter (PCR) Not detected (Not Detect) C. difficile Tox (PCR) Not detected (Not Detect) SARS-CoV-2 (PCR) Negative (Negative) Influenza A (RT-PCR) Flu a negative (NEGATIVE) Influenza B (RT-PCR) Flu b negative (NEGATIVE) RSV (PCR) Negative (Negative) Salmonella (PCR) Not detected (Not Detect) Urine Dip Bedside Urine Glucose Negative Bedside Urine Bilirubin + 1 Bedside Urine Ketone ++ 40 Urine Specific [place] 1.030 Bedside Urine Occult Blood ++ Bedside Urine pH 5.5 Bedside Urine Protein +/- 15 Bedside Urine Urobilinogen - Negative Bedside Urine Nitrite - Negative Bedside Urine Leukocytes - Negative Esterase ECG Data Attestation: I personally reviewed and interpreted this ECG as follows: Interpretation: Sinus rhythm, left bundle-branch block rate of 73 ME 148 QRS of 122 QTC of 486. MDM Narrative Medical decision making narrative: Patient has a white count of 3.6, white count was 6 in January of 2024 hemoglobin is 12.9 platelets are 82 trended down words from priors. Coags are negative, creatinine is 1.77 increased from 0.76 in January of 2024 with a BUN 29 CO2 of 16 sodium 134 potassium and chloride are otherwise normal, glucose is 90 AST is 44 but bilirubin, ALT and alk-phos are normal, lactate 1. Procalcitonin 0.219 is negative. Flu/COVID/RSV is negative EKG shows NSR with RBBB. Chest xray shows no dense airspace disease or pleural effusion heart size upper limit of normal unchanged degenerative osseous changes right breast and axillary postsurgical changes. CT KUB obtained as patient's creatinine is elevated from prior patient is unsure if she was had any new changes to her kidney function has not known lung cancer with brain metastases patient did not relay any metastatic changes could be secondary to diarrhea and dehydration but will evaluate for any obstructive changes. Imaging shows UA, 5-10 RBCs 1 white cell, 1-5 squamous, 1 bacteria 1-5 hyaline cast. Point of care showed blood, ketones and bilirubin. GI panel ordered to evaluate for C diff as patient is immune compromised and has been on recent antibiotics. GI panel is negative. Normal saline 1 L bolus. Patient has had some improvement of her blood pressure suspect there maybe a component of dehydration. Received an additional 1L bolus. Patient's pressure and continued to improve. Discussed with the patient she was unsure if she was had any alterations to her renal function she was felt appropriate for discharge home but we will close follow up she was agreeable we will have her call to follow up and have her creatinine rechecked in the next day or 2. Discharge Plan Departure Patient Disposition: Home Clinical Impression: Diarrhea, Elevated serum creatinine, Thrombocytopenia Activity Restrictions/Additional Instructions: Call your oncology team or primary care to set up follow-up your labs. Your work today shows your white blood cell count and platelets are little bit low, your creatinine was also elevated but I do not have any priors since January 2024 for comparison. Today your creatinine was 1.77. Please follow up to have this rechecked along with your white blood cell count and platelets in the next 1-2 days if that is not your normal baseline according to your medical team. Your urine and GI panel was negative. Your CT of your abdomen also did not show any major changes. A copy of your labs are included. You do appear to be quite dehydrated. Please continue to hydrate regularly If you are having any persistent fevers, lightheadedness or passing out, new abdominal back or flank pain, vomiting, worsening or persistent diarrhea black or bloody stools or other new or concerning changes return to the emergency department. Prescriptions: No Action Tagrisso 80 mg tablet 80 mg PO DAILY levetiracetam [Keppra] 500 mg tablet 500 mg PO BID Referrals: Traci Garcia MD [Primary Care Provider] - Stand Alone Forms: Patient Portal/API/Survey
[2024-10-29 13:52] LABS: Procalcitonin 0.219 ng/mL (<0.5)
--- NOTE | 2024-10-29 14:17 | DI.CT.S_ITS ---
PROCEDURE: CT KIDNEY URETER BLADDER (KUB) INDICATIONS: diarrhea, elevated creatinine, known lung ca w/ mets TECHNIQUE: Axial sections were acquired from the lung bases to the pubic symphysis. Coronal and sagittal reformats were performed. For radiation dose reduction, the following was used: automated exposure control, adjustment of mA and/or kV according to patient size. COMPARISON: [place], [place], PET NECK TO MID THIGH, 10/18/2023, 11:33. FINDINGS: Image quality: Diagnostic. Lower Chest: Partially visualized right lower lobe nodule previously identified. URINARY: Right Kidney: Nonobstructing 1.1 x 1.2 cm superior pole calcification, Hounsfield units 615. Right Ureter: No hydroureter. Left Kidney: No stones or hydronephrosis. Left Ureter: No hydroureter. Bladder: Normal wall thickness. No stones. ABDOMEN: Liver: 1.0 cm low-attenuation focus within the inferior lateral right hepatic lobe series 2, image 63. It was previously present without hypermetabolic activity. Gallbladder: No radiopaque gallstones or wall thickening. Biliary ducts: No biliary dilation. Pancreas: No ductal dilation. Spleen: Size is within normal limits. Adrenal Glands: No adrenal nodules. Stomach and Bowel: Normal colonic caliber, without significant wall thickening. Scattered colonic diverticula without inflammatory change. Peritoneum: No abnormal intraperitoneal fluid. No free air. Ventral Wall: No hernia. Abdominal Nodes: No enlarged retroperitoneal or mesenteric lymph nodes. Vessels: Aorta and inferior vena cava are normal in size. PELVIS: Pelvic Organs: Prominent calcifications are present within the uterus likely fibroids. Pelvic Nodes: Unremarkable. Miscellaneous: No inguinal hernias are seen. Bones: Unremarkable. IMPRESSION: No obstructing stones or hydronephrosis. Nonobstructing right renal calculus. Diverticulosis. Dictated by: Danielle Gimenez M.D. on 10/29/2024 at 15:21 Approved by: Danielle Gimenez M.D. on 10/29/2024 at 15:26
[2024-10-29 15:22] LABS: Ictotest Urine Positive (Negative)
[2024-10-29 15:46] LABS: Bacteria Urine Occasional (0-1); Culture Indicated Urine Cult Not Indicated; Hyaline Casts Urine 1-5/LPF; Mucus Urine 2+ (Negative); RBC Urine 5-10/HPF (0-5/HPF); Squamous Epithelial Cell Urine 1-5 /HPF (0-5/HPF); Urine Volume 10mL (spun); WBC Urine 0-1/HPF (0-5/HPF)
[2024-10-29 16:20] LABS: Adenovirus F 40/41 Not Detected (Not Detect); Astrovirus Not Detected (Not Detect); Campylobacter Not Detected (Not Detect); Clostridium difficile toxin AB Not Detected (Not Detect); Cryptosporidium Not Detected (Not Detect); Cyclospora cayetanensis Not Detected (Not Detect); Entamoeba histolytica Not Detected (Not Detect); Enteroaggregative E.coli Not Detected (Not Detect); Enteropathogenic E.coli Not Detected (Not Detect); Enterotoxigenic E.coli It/st Not Detected (Not Detect); Giardia lamblia Not Detected (Not Detect); Norovirus GI/GII Not Detected (Not Detect); Plesiomonsa shigelloides Not Detected (Not Detect); Rotavirus A Not Detected (Not Detect); Salmonella Not Detected (Not Detect); Sapovirus Not Detected (Not Detect); Shiga-like toxin-prod E.coli Not Detected (Not Detect); Shigella/Enteroinvasive E.coli Not Detected (Not Detect); Vibrio Not Detected (Not Detect); Vibrio cholerae Not Detected (Not Detect); Yersinia enterocolitica Not Detected (Not Detect)
== END 2024-10-29 17:44 | disposition home or self-care (01) ==
PROVIDERS: Emergency Provider Emergency Medicine; PCP Internal Medicine
DX: R19.7 Diarrhea, unspecified (principal); R79.89 Other specified abnormal findings of blood chemistry; D69.6 Thrombocytopenia, unspecified; Z92.21 Personal history of antineoplastic chemotherapy; C34.90 Malignant neoplasm of unspecified part of unspecified bronchus or lung; C79.31 Secondary malignant neoplasm of brain
CPT/HCPCS: 0241U; 36415; 71045; 74176; 80053; 81003; 81015; 83605; 83690; 84145; 85025; 85610; 85730; 87040; 87507; 93005; 96360; 96361; 99284

== ENCOUNTER → 2024-11-01 10:35 | Outpatient (CLI) | payer MEDICARE, SELFPAY ==
[2024-11-01 11:45] LABS: Alanine Aminotransferase 37 IU/L (<35); Albumin 4.1 g/dL (3.5-5.0); Albumin Globulin Ratio 1.7 (1.0-2.8); Alkaline Phosphatase 47 U/L (38-126); Aspartate Aminotransferase 42 IU/L (14-36); BUN Creatinine Ratio 18.6 (6-22); Bilirubin Total 0.4 mg/dL (0.2-1.3); Blood Urea Nitrogen 16 mg/dL (7-17); Calcium 8.8 mg/dL (8.4-10.2); Carbon Dioxide 24 mmol/L (22-32); Chloride 103 mmol/L (98-107); Estimated Glomerular Filt Rate > 60 mL/min (>60); Globulin 2.4 g/dL (1.7-4.1); Glucose 100 mg/dL (80-110); HEMOLYSIS 22 (0-50); Potassium 4.5 mmol/L (3.4-5.1); Sodium 137 mmol/L (137-145); Total Protein 6.5 g/dL (6.3-8.2)
== END ==
PROVIDERS: PCP Internal Medicine; Referring Provider Nurse Practitioner; Visit Provider Nurse Practitioner
DX: N17.9 Acute kidney failure, unspecified (principal)
CPT/HCPCS: 36415; 80053

== ENCOUNTER → 2024-11-12 11:28 | Outpatient (CLI) | payer MEDICARE, SELFPAY ==
--- NOTE | 2024-11-12 11:29 | DI.MG.S_ITS ---
MM screening mammo BI: 11/12/2024. BI-RADS: 2 CLINICAL: 69-year old female for bilateral screening mammogram. No Tyrer-Cuzick risk score calculation due to the patient's personal history of breast cancer. Patient reports a history of right breast carcinoma diagnosed at age 47. Status-post right lumpectomy with hormonal therapy. No first-degree family history of breast cancer. The patient had a prior right breast biopsy. PRIOR EXAMS 08/29/2023, 08/22/2023, 08/02/2023, 08/18/2022, 07/22/2021, 07/21/2020, 07/19/2019, 07/17/2018, 12/29/2016, 06/29/2016, 06/20/2016, 04/01/2015. MAMMOGRAPHY TECHNIQUE: 2D and 3D (tomosynthesis) digital mammographic views obtained, with additional images as needed for full coverage. Current study was also evaluated with a Computer Aided Detection (CAD) system. DENSITY C. The breasts are heterogeneously dense, which may obscure small masses. MAMMOGRAPHY FINDINGS Right: Benign-appearing post-surgical changes noted on the right. There are no suspicious masses, calcifications, or other findings in the breast. Left: No suspicious mass, asymmetry, microcalcification, or other abnormality seen. IMPRESSION: Right * No evidence of malignancy with benign findings. Left * No evidence of malignancy. RECOMMENDATIONS Bilateral * Annual screening mammography. OVERALL ASSESSMENT CATEGORY BI-RADS-2: Benign. The [employer] recommends annual screening mammography beginning at age 40 for women with average risk of breast cancer. ELECTRONICALLY SIGNED: Amanda Escoto M.D. on 11/18/2024 at 04:56:16 AM PT Interpreting Station ID: [id number]
== END ==
LOC: MAMMO 11:29
PROVIDERS: PCP Internal Medicine; Referring Provider Physician Assistant; Visit Provider Physician Assistant
DX: Z12.31 Encounter for screening mammogram for malignant neoplasm of breast (principal); Z85.3 Personal history of malignant neoplasm of breast; R92.333 Mammographic heterogeneous density, bilateral breasts
CPT/HCPCS: 77063; 77067

== ENCOUNTER → 2025-06-29 12:31 | Outpatient (CLI) | payer MEDICARE, SELFPAY | PROVIDERS: PCP Internal Medicine; Visit Provider Chiropractor | DX: J02.9 Acute pharyngitis, unspecified (principal) | CPT/HCPCS: 87070 ==